=== PATIENT | female | born 1940 | race African-American/Black ===

== ENCOUNTER 2016-05-21 15:33 | Inpatient (IN) | payer MEDICARE, MEDICAID ==
[~2016-05-21] VITALS: Ht 167.6 cm; Wt 67.1 kg
[~2016-05-21 15:33] MED LIST: ALBUTEROL; AMLO10TA80; ANAS1TAB7; BUDE6HFA; CALC-696; CALC0.253; CLON0.1T; DOCUSATE; ETOMIDATE 2MG/ML 10ML VIAL IV ONE; FERR325T21; FLUT50DI; HYDR100V5; HYDR20TA; IPRA0.2S51; IPRA4AER; OMEP20CA10; SODI1TAB3; SUCCINYLCHOLINE CHLORIDE 200MG/10ML VIAL IV ONE; TC1C15; VITAMIN; [UNRECOGNIZED DRUG - CODE]
[2016-05-21] MEDS ORDERED: SODIUM CHLORIDE 0.9% 1,000 ML IV ONE ×2 (16:39→21:00)
[2016-05-21] MEDS ORDERED: KETOROLAC 30MG/ML VIAL IV STA (16:39)
[2016-05-21] MEDS ORDERED: ONDANSETRON HCL 4MG/2ML VIAL IV STA (16:39)
[2016-05-21 17:07] LABS: CHLORIDE 96 mEq/L (98-107); INDEX HEMOLYSI 1 (1-3); INDEX ICTERIC 1 (1-4); INDEX LIPEMIC 1 (1-3)
[2016-05-21 17:08] LABS: INR 1.1; PROTHROMBIN TIME 11.4 sec
[2016-05-21 17:15] LABS: ALANINE AMINOTRANSFERASE 75 IU/L (13-61); ALBUMIN 3.1 g/dL (3.4-5.0); ANION GAP 21; BASOPHILS % 0.4 % (0.0-2.0); CALCIUM 9.6 mg/dL (8.5-10.1); CARBON DIOXIDE 21 mEq/L (21-32); EOSINOPHILS % 1.9 % (0.0-5.0); HEMATOCRIT. 41.3 % (36.0-48.0); HEMOGLOBIN. 13.3 g/dL (12.0-16.0); LIPASE 110 IU/L (73-393); LYMPHOCYTES % 13.5 % (20.0-50.0); MEAN CORPUSCULAR HEMOGLOBIN 27.7 pg (28.0-32.0); MEAN CORPUSCULAR HGB CONC 32.3 g/dL (31.0-37.0); MEAN CORPUSCULAR VOLUME 85.9 fL (81.0-99.0); MEAN PLATELET VOLUME 9.4 fl (7.4-10.4); MONOCYTES % 11.7 % (2.0-8.0); NEUTROPHILS % 72.5 % (40.0-76.0); PLATELET 237 x1000/uL (130-400); RED BLOOD CELL COUNT 4.81 mill/uL (4.2-5.4); RED CELL DISTRIBUTION WIDTH 15.4 % (11.6-14.6); UREA NITROGEN BLOOD 30 mg/dL (7-21); WHITE BLOOD COUNT 9.6 x1000/uL (4.5-11.0); eGFR 12 mL/min (>60)
[2016-05-21] MEDS ORDERED: KCL 20MEQ/100ML PREMIX 100 ML IV ONE (18:00)
[2016-05-21] MEDS ORDERED: LORAZEPAM 2MG/ML CPJ IV ONE (19:45)
[2016-05-21] MEDS ORDERED: MIDAZOLAM HCL 50 MG in DEXTROSE 5% WATER 40 ML IV ONE (21:00)
[2016-05-21] MEDS ORDERED: MIDAZOLAM HCL 2 MG/2 ML VIAL IV ONE (21:00)
[2016-05-21] MEDS: METHYLPREDNISOLONE SOD SUCC 40 MG/ML VIAL IV SCH (21:26)
[2016-05-21] MEDS ORDERED: MIDAZOLAM HCL 50 MG in DEXTROSE 5% WATER 40 ML IV SCH (21:30)
[2016-05-21] MEDS ORDERED: NOREPINEPHRINE 4 MG in DEXT 5% WATER 246 ML IV ONE ×2 (22:15→23:00)
[2016-05-21] MEDS ORDERED: LEVOFLOXACIN 750MG PREMIX 150 ML IV ONE (22:30)
[2016-05-22] VITALS (91 sets, daily range): BP systolic 80–158; BP diastolic 35–107
[2016-05-22] MEDS ORDERED: SODIUM CHLORIDE 0.9% 1,000 ML IV ONE
[2016-05-22 00:27] LABS: BG BASE EXCESS -11.8 mmol/L (-2.0-2.0); BG CARBOXYHEMOGLOBIN 0.6 % (0.5-1.5); BG DEOXYHEMOGLOBIN 0.4 % (0.0-5.0); BG FRACTION INSPIRED OXYGEN 100; BG HCO3 ACT 12.5 mmol/L (22.0-26.0); BG METHEMOGLOBIN 0.3 % (0.0-1.5); BG OXYGEN SATURATION 99.6 % (92.0-98.5); BG OXYHEMOGLOBIN 98.7 % (94.0-97.0); BG PCO2 24.5 mmHg (35.0-45.0); BG PH 7.326 (7.350-7.450); BG PO2 231.4 mmHg (75.0-100.0); BG SAMPLE SITE LEFT RADIAL; BG TIDAL VOLUME(mL) 500 mL; BG TOTAL HEMOGLOBIN 11.4 g/dL (12.0-18.0); BG VENT MODE VENT - A/C; BG VENT RATE 14 set
[2016-05-22 00:54] LABS: PHOSPHORUS 8.2 mg/dL (2.5-4.9)
[2016-05-22 00:56] LABS: INDEX HEMOLYSI 3 (1-3)
[2016-05-22] MEDS ORDERED: DEXTROSE 50% WATER 50ML SYRINGE IV ONE (01:00)
[2016-05-22] MEDS ORDERED: SODIUM CHL 0.9% + KCL 20MEQ/L 1,000 ML IV SCH (03:00)
[2016-05-22] MEDS ORDERED: DEXT 5%/0.45% NACL 1000ML 1,000 ML IV SCH ×2 (03:45→04:00)
[2016-05-22] MEDS ORDERED: DEXTROSE 50% WATER 50ML SYRINGE IV PRN (03:45)
[2016-05-22] MEDS ORDERED: MIDAZOLAM HCL 100 MG in DEXT 5% WATER 80 ML IV PRN (03:45)
[2016-05-22] MEDS: METHYLPREDNISOLONE SOD SUCC 40 MG/ML VIAL IV SCH ×4 (03:56→21:14)
[2016-05-22 04:12] LABS: HEMATOCRIT. 34.1 % (36.0-48.0); HEMOGLOBIN. 10.7 g/dL (12.0-16.0); MEAN CORPUSCULAR HEMOGLOBIN 27.3 pg (28.0-32.0); MEAN CORPUSCULAR HGB CONC 31.4 g/dL (31.0-37.0); MEAN CORPUSCULAR VOLUME 86.8 fL (81.0-99.0); PLATELET 153 x1000/uL (130-400); RED BLOOD CELL COUNT 3.93 mill/uL (4.2-5.4); RED CELL DISTRIBUTION WIDTH 15.5 % (11.6-14.6); WHITE BLOOD COUNT 14.7 x1000/uL (4.5-11.0)
[2016-05-22 04:14] LABS: DIFFERENTIAL COMMENT 1
[2016-05-22 04:34] LABS: ALANINE AMINOTRANSFERASE 703 IU/L (13-61); ALBUMIN 2.3 g/dL (3.4-5.0); ANION GAP 17; CALCIUM 7.6 mg/dL (8.5-10.1); CARBON DIOXIDE 18 mEq/L (21-32); CHLORIDE 108 mEq/L (98-107); GAMMA GLUTAMYL TRANSPEPTIDASE 13 IU/L (7-32); INDEX HEMOLYSI 1 (1-3); INDEX ICTERIC 1 (1-4); INDEX LIPEMIC 1 (1-3); T4 FREE 1.62 ng/dL (0.76-1.46); UREA NITROGEN BLOOD 35 mg/dL (7-21); eGFR 12 mL/min (>60)
[2016-05-22] MEDS ORDERED: METRONIDAZOLE 500 MG PREMIX 100 ML IV SCH (05:00)
[2016-05-22] MEDS: BLOOD SUGAR DIAGNOSTIC STRIP TEST SCH ×4 (06:00→23:32)
[2016-05-22 06:07] LABS: LACTIC ACID 2.8 mmol/L (0.4-2.0)
[2016-05-22 06:51] LABS: ANISOCYTOSIS 1+; PLATELET ESTIMATE NORMAL
[2016-05-22 07:07] LABS: CREATINE KINASE 7500 IU/L (26-192)
[2016-05-22 07:54] LABS: BG BASE EXCESS -6.2 mmol/L (-2.0-2.0); BG DEOXYHEMOGLOBIN 0.8 % (0.0-5.0); BG FRACTION INSPIRED OXYGEN 90; BG METHEMOGLOBIN 0.1 % (0.0-1.5); BG OXYGEN SATURATION 99.2 % (92.0-98.5); BG OXYHEMOGLOBIN 99.1 % (94.0-97.0); BG PCO2 31.8 mmHg (35.0-45.0); BG PO2 246.2 mmHg (75.0-100.0); BG SAMPLE SITE RIGHT RADIAL; BG TIDAL VOLUME(mL) 500 mL; BG TOTAL HEMOGLOBIN 13.5 g/dL (12.0-18.0); BG VENT MODE VENT - A/C; BG VENT RATE 14 set
[2016-05-22] MEDS ORDERED: PANTOPRAZOLE SODIUM 40 MG/VIAL IV SCH (09:00)
[2016-05-22] MEDS ORDERED: DEXT 5%/0.45% NACL KCL 20MEQ/L 1,000 ML IV SCH (09:00)
[2016-05-22 10:11] LABS: MAGNESIUM 1.6 mg/dL (1.8-2.4); PHOSPHORUS 4.1 mg/dL (2.5-4.9)
[2016-05-22] MEDS: PROPOFOL 10MG/ML 100ML 100 ML IV PRN (10:27)
[2016-05-22 11:19] LABS: CLARITY URINE CLOUDY (CLEAR); COLOR URINE YELLOW (YELLOW); GLUCOSE URINE 1+ (NEGATIVE); KETONES URINE NEGATIVE (NEGATIVE); LEUKOCYTE ESTERASE URINE NEGATIVE (NEGATIVE); NITRITE URINE NEGATIVE (NEGATIVE); OCCULT BLOOD URINE 3+ (NEGATIVE); PH URINE 5.5 (4.5-8.0); PROTEIN URINE 1+ (NEGATIVE); SPECIFIC GRAVITY URINE 1.008 (1.005-1.030); UROBILINOGEN URINE 0.2 E.U./dL (0.2-1.0)
[2016-05-22 11:38] LABS: BACTERIA URINE 1+; SQUAMOUS EPITHELIAL CELL URINE FEW /lpf (RARE/1+); WBC URINE 0-2 /hpf (0-2)
[2016-05-22 13:12] LABS: HEMATOCRIT 39.4 % (36.0-48.0); HEMOGLOBIN 12.9 g/dL (12.0-16.0)
[2016-05-22] MEDS: SODIUM BICARBONATE 50 MEQ in DEXTROSE 5% WATER 1,000 ML IV SCH ×6 (14:09→21:14)
[2016-05-22] MEDS ORDERED: MAGNESIUM 2 G PREMIX 50 ML IV SCH (15:00)
[2016-05-22 15:01] LABS: HEPATITIS B SURFACE ANTIGEN NEGATIVE
[2016-05-22 15:16] LABS: HEPATITIS B CORE AB IGM NEGATIVE; HEPATITIS C VIR.AB < 0.02 INDEXVAL (0.00-0.80)
[2016-05-22 15:18] LABS: HEPATITIS A AB IGM NEGATIVE (NEGATIVE)
[2016-05-22] MEDS: BUDESONIDE 0.5MG/2ML NEB HHN SCH ×2 (17:00→20:18)
[2016-05-22 19:33] LABS: HEMATOCRIT 41.7 % (36.0-48.0); HEMOGLOBIN 13.6 g/dL (12.0-16.0)
[2016-05-22] MEDS: METRONIDAZOLE 500MG TABLET PO SCH (21:14)
[2016-05-22] MEDS: PANTOPRAZOLE SODIUM 40 MG/VIAL IV SCH (21:14)
[2016-05-23] VITALS (66 sets, daily range): BP systolic 107–171; BP diastolic 31–114
[2016-05-23] MEDS: PROPOFOL 10MG/ML 100ML 100 ML IV PRN (01:14)
[2016-05-23 01:16] LABS: HEMATOCRIT 37.9 % (36.0-48.0); HEMOGLOBIN 12.1 g/dL (12.0-16.0)
[2016-05-23] MEDS: METHYLPREDNISOLONE SOD SUCC 40 MG/ML VIAL IV SCH ×4 (03:42→21:31)
[2016-05-23] MEDS: BLOOD SUGAR DIAGNOSTIC STRIP TEST SCH ×3 (06:00→18:00)
[2016-05-23] MEDS: SODIUM BICARBONATE 50 MEQ in DEXTROSE 5% WATER 1,000 ML IV SCH ×3 (06:16)
[2016-05-23 06:50] LABS: HEMATOCRIT. 39.2 % (36.0-48.0); HEMOGLOBIN. 12.8 g/dL (12.0-16.0); MEAN CORPUSCULAR HEMOGLOBIN 27.6 pg (28.0-32.0); MEAN CORPUSCULAR HGB CONC 32.7 g/dL (31.0-37.0); MEAN CORPUSCULAR VOLUME 84.5 fL (81.0-99.0); MEAN PLATELET VOLUME 9.8 fl (7.4-10.4); PLATELET 146 x1000/uL (130-400); RED BLOOD CELL COUNT 4.64 mill/uL (4.2-5.4); RED CELL DISTRIBUTION WIDTH 16.1 % (11.6-14.6); WHITE BLOOD COUNT 8.8 x1000/uL (4.5-11.0)
[2016-05-23 06:55] LABS: DIFFERENTIAL COMMENT 1
[2016-05-23 07:05] LABS: ALBUMIN 2.2 g/dL (3.4-5.0); BILIRUBIN DIRECT 0.2 mg/dL (0.0-0.2); CALCIUM 7.6 mg/dL (8.5-10.1); MAGNESIUM 2.4 mg/dL (1.8-2.4); PHOSPHORUS 5.2 mg/dL (2.5-4.9)
[2016-05-23] MEDS: BUDESONIDE 0.5MG/2ML NEB HHN SCH ×2 (08:25→21:02)
[2016-05-23 08:40] LABS: BG BASE EXCESS -2.7 mmol/L (-2.0-2.0); BG CARBOXYHEMOGLOBIN 0.1 % (0.5-1.5); BG DEOXYHEMOGLOBIN 1.9 % (0.0-5.0); BG FRACTION INSPIRED OXYGEN 40; BG HCO3 ACT 19.7 mmol/L (22.0-26.0); BG METHEMOGLOBIN 0.4 % (0.0-1.5); BG OXYGEN SATURATION 98.1 % (92.0-98.5); BG OXYHEMOGLOBIN 97.6 % (94.0-97.0); BG PCO2 27.5 mmHg (35.0-45.0); BG PH 7.472 (7.350-7.450); BG PO2 117.1 mmHg (75.0-100.0); BG SAMPLE SITE RIGHT RADIAL; BG TIDAL VOLUME(mL) 500 mL; BG TOTAL HEMOGLOBIN 12.8 g/dL (12.0-18.0); BG VENT MODE VENT - A/C; BG VENT RATE 14 set
[2016-05-23] MEDS: PANTOPRAZOLE SODIUM 40 MG/VIAL IV SCH ×2 (09:05→21:27)
[2016-05-23] MEDS: METRONIDAZOLE 500MG TABLET PO SCH ×2 (09:06→21:27)
[2016-05-23 10:09] LABS: ANISOCYTOSIS 1+; PLATELET ESTIMATE NORMAL
[2016-05-23 10:10] LABS: GIANT PLATELETS 1+
[2016-05-23] MEDS: MORPHINE SULFATE 2 MG/ML CPJ (NOT FOR IM USE) IV PRN ×2 (11:54→21:55)
[2016-05-23 12:27] LABS: HEMATOCRIT 35.1 % (36.0-48.0); HEMOGLOBIN 11.7 g/dL (12.0-16.0)
[2016-05-23 13:20] LABS: INDEX HEMOLYSI 1 (1-3)
[2016-05-23 13:51] LABS: CREATINE KINASE 7878 IU/L (26-192)
[2016-05-23 14:05] LABS: BG BASE EXCESS -2.3 mmol/L (-2.0-2.0); BG CARBOXYHEMOGLOBIN 0.2 % (0.5-1.5); BG DEOXYHEMOGLOBIN 1.5 % (0.0-5.0); BG FRACTION INSPIRED OXYGEN 40; BG HCO3 ACT 19.8 mmol/L (22.0-26.0); BG METHEMOGLOBIN 0.2 % (0.0-1.5); BG OXYGEN SATURATION 98.5 % (92.0-98.5); BG OXYHEMOGLOBIN 98.1 % (94.0-97.0); BG PCO2 26.5 mmHg (35.0-45.0); BG PH 7.491 (7.350-7.450); BG PO2 138.4 mmHg (75.0-100.0); BG PRESSURE SUPPORT 6; BG SAMPLE SITE RIGHT RADIAL; BG TOTAL HEMOGLOBIN 12.2 g/dL (12.0-18.0); BG VENT MODE VENT - CPAP
[2016-05-23] MEDS: DEXT 5%/0.9% NACL 1,000 ML IV SCH ×2 (15:15→23:21)
[2016-05-23] MEDS ORDERED: ENALAPRIL 2.5MG/2ML VIAL 2ML IV PRN (18:30)
[2016-05-23] MEDS ORDERED: ENALAPRIL 1.25MG/ML VIAL 1ML IV PRN (19:30)
[2016-05-23 19:44] LABS: HEMATOCRIT 33.7 % (36.0-48.0); HEMOGLOBIN 11.4 g/dL (12.0-16.0)
[2016-05-24] VITALS (22 sets, daily range): BP systolic 124–174; BP diastolic 63–139
[2016-05-24] MEDS ORDERED: LEVOFLOXACIN 250MG PREMIX 50 ML IV SCH
[2016-05-24] MEDS: LEVOFLOXACIN 250MG PREMIX 50 ML IV SCH (00:08)
[2016-05-24] MEDS: BLOOD SUGAR DIAGNOSTIC STRIP TEST SCH ×4 (00:08→17:09)
[2016-05-24] MEDS: METHYLPREDNISOLONE SOD SUCC 40 MG/ML VIAL IV SCH ×3 (02:36→16:20)
[2016-05-24 06:31] LABS: HEMATOCRIT. 32.1 % (36.0-48.0); HEMOGLOBIN. 10.6 g/dL (12.0-16.0); MEAN CORPUSCULAR HEMOGLOBIN 27.4 pg (28.0-32.0); MEAN CORPUSCULAR VOLUME 82.8 fL (81.0-99.0); MEAN PLATELET VOLUME 9.8 fl (7.4-10.4); PLATELET 124 x1000/uL (130-400); RED BLOOD CELL COUNT 3.87 mill/uL (4.2-5.4); RED CELL DISTRIBUTION WIDTH 15.8 % (11.6-14.6); WHITE BLOOD COUNT 6.4 x1000/uL (4.5-11.0)
[2016-05-24] MEDS: DEXT 5%/0.9% NACL 1,000 ML IV SCH (06:36)
[2016-05-24 07:17] LABS: DIFFERENTIAL COMMENT 1
[2016-05-24] MEDS: BUDESONIDE 0.5MG/2ML NEB HHN SCH ×2 (07:42→19:57)
[2016-05-24 08:09] LABS: CALCIUM 7.1 mg/dL (8.5-10.1); MAGNESIUM 2.1 mg/dL (1.8-2.4); PHOSPHORUS 5.7 mg/dL (2.5-4.9)
[2016-05-24 08:25] LABS: PLATELET ESTIMATE SLIGHTLY DECREASED
[2016-05-24 08:27] LABS: ANISOCYTOSIS 1+
[2016-05-24] MEDS: METRONIDAZOLE 500MG TABLET PO SCH ×2 (08:49→20:23)
[2016-05-24] MEDS: PANTOPRAZOLE SODIUM 40 MG/VIAL IV SCH ×2 (08:49→20:23)
[2016-05-24] MEDS: HYDRALAZINE 20MG/ML VIAL IV PRN ×2 (11:58→17:11)
[2016-05-24] MEDS: IPRATROPIUM/ALBUTEROL 0.5-3(2.5)MG/3ML NEB HHN SCH ×3 (12:27→19:57)
[2016-05-24] MEDS ORDERED: CLONIDINE HCL 0.1MG/24HR PATCH TD SCH (15:12)
[2016-05-24] MEDS ORDERED: DEXT 5%/0.45% NACL 1000ML 1,000 ML IV SCH (16:00)
[2016-05-24] MEDS: MORPHINE SULFATE 2 MG/ML CPJ (NOT FOR IM USE) IV PRN (16:17)
[2016-05-24] MEDS: DEXT 5%/0.45% NACL 1000ML 1,000 ML IV SCH (16:23)
[2016-05-25] VITALS (34 sets, daily range): BP systolic 127–198; BP diastolic 56–110
[2016-05-25] MEDS: IPRATROPIUM/ALBUTEROL 0.5-3(2.5)MG/3ML NEB HHN SCH ×7 (00:52→23:51)
[2016-05-25] MEDS: DEXT 5%/0.45% NACL 1000ML 1,000 ML IV SCH ×3 (02:35→23:34)
[2016-05-25] MEDS: BLOOD SUGAR DIAGNOSTIC STRIP TEST SCH ×5 (05:40→23:55)
[2016-05-25 06:18] LABS: HEMATOCRIT. 31.3 % (36.0-48.0); HEMOGLOBIN. 10.3 g/dL (12.0-16.0); MEAN CORPUSCULAR HEMOGLOBIN 27.3 pg (28.0-32.0); MEAN CORPUSCULAR VOLUME 82.8 fL (81.0-99.0); MEAN PLATELET VOLUME 9.8 fl (7.4-10.4); PLATELET 131 x1000/uL (130-400); RED BLOOD CELL COUNT 3.78 mill/uL (4.2-5.4); RED CELL DISTRIBUTION WIDTH 15.8 % (11.6-14.6); WHITE BLOOD COUNT 8.6 x1000/uL (4.5-11.0)
[2016-05-25 06:19] LABS: DIFFERENTIAL COMMENT 1
[2016-05-25 07:38] LABS: PLATELET ESTIMATE NORMAL
[2016-05-25 07:40] LABS: ANISOCYTOSIS 1+
[2016-05-25] MEDS: METRONIDAZOLE 500MG TABLET PO SCH ×2 (09:14→20:35)
[2016-05-25] MEDS: FAMOTIDINE 20MG/2ML VIAL IV SCH (09:14)
[2016-05-25 09:16] LABS: BILIRUBIN DIRECT 0.2 mg/dL (0.0-0.2); CALCIUM 7.3 mg/dL (8.5-10.1); MAGNESIUM 1.9 mg/dL (1.8-2.4); PHOSPHORUS 3.8 mg/dL (2.5-4.9)
[2016-05-25] MEDS: BUDESONIDE 0.5MG/2ML NEB HHN SCH (09:17)
[2016-05-25] MEDS: METHYLPREDNISOLONE SOD SUCC 40 MG/ML VIAL IV SCH ×4 (09:17→23:35)
[2016-05-25 09:23] LABS: T3 FREE 0.86 pg/ml (2.18-3.98)
[2016-05-25 11:07] LABS: BG BASE EXCESS -3.9 mmol/L (-2.0-2.0); BG CARBOXYHEMOGLOBIN 0.1 % (0.5-1.5); BG DEOXYHEMOGLOBIN 2.5 % (0.0-5.0); BG FRACTION INSPIRED OXYGEN 28; BG HCO3 ACT 19.4 mmol/L (22.0-26.0); BG METHEMOGLOBIN 0.3 % (0.0-1.5); BG OXYGEN SATURATION 97.5 % (92.0-98.5); BG OXYHEMOGLOBIN 97.1 % (94.0-97.0); BG PCO2 29.6 mmHg (35.0-45.0); BG PH 7.435 (7.350-7.450); BG PO2 107.4 mmHg (75.0-100.0); BG SAMPLE SITE RIGHT BRACHIAL; BG TOTAL HEMOGLOBIN 10.9 g/dL (12.0-18.0); BG VENT MODE NASAL CANNULA
[2016-05-25] MEDS: HYDRALAZINE 20MG/ML VIAL IV PRN ×2 (11:15→16:22)
[2016-05-25] MEDS ORDERED: POTASSIUM CHLORIDE INJ 40 MEQ in DEXT 5% WATER 250 ML IV NR (11:30)
[2016-05-25 12:46] LABS: CREATININE URINE (RAW) 63.5 mg/dl
[2016-05-25] MEDS: MORPHINE SULFATE 2 MG/ML CPJ (NOT FOR IM USE) IV PRN ×2 (14:05)
[2016-05-25] MEDS ORDERED: CLONIDINE HCL 0.3MG/24HR PATCH TD NR (15:30)
[2016-05-25] MEDS ORDERED: ENALAPRIL 2.5MG/2ML VIAL 2ML IV SCH (18:00)
[2016-05-25] MEDS: LEVOFLOXACIN 250MG PREMIX 50 ML IV SCH (23:35)
[2016-05-26] VITALS (17 sets, daily range): BP systolic 135–166; BP diastolic 81–109
[2016-05-26] MEDS: MORPHINE SULFATE 2 MG/ML CPJ (NOT FOR IM USE) IV PRN ×3 (00:18→20:06)
[2016-05-26] MEDS: IPRATROPIUM/ALBUTEROL 0.5-3(2.5)MG/3ML NEB HHN SCH ×6 (04:01→23:47)
[2016-05-26] MEDS: BLOOD SUGAR DIAGNOSTIC STRIP TEST SCH ×3 (06:00→17:59)
[2016-05-26 06:59] LABS: HEMATOCRIT. 28.7 % (36.0-48.0); HEMOGLOBIN. 9.2 g/dL (12.0-16.0); MEAN CORPUSCULAR HEMOGLOBIN 26.7 pg (28.0-32.0); MEAN CORPUSCULAR VOLUME 83.3 fL (81.0-99.0); PLATELET 117 x1000/uL (130-400); RED BLOOD CELL COUNT 3.45 mill/uL (4.2-5.4); RED CELL DISTRIBUTION WIDTH 15.9 % (11.6-14.6); WHITE BLOOD COUNT 16.5 x1000/uL (4.5-11.0)
[2016-05-26 07:06] LABS: DIFFERENTIAL COMMENT 1
[2016-05-26 08:06] LABS: CALCIUM 8.2 mg/dL (8.5-10.1); MAGNESIUM 1.8 mg/dL (1.8-2.4); PHOSPHORUS 2.8 mg/dL (2.5-4.9)
[2016-05-26] MEDS: METHYLPREDNISOLONE SOD SUCC 40 MG/ML VIAL IV SCH ×2 (08:06→15:10)
[2016-05-26] MEDS: METRONIDAZOLE 500MG TABLET PO SCH (08:06)
[2016-05-26] MEDS: FAMOTIDINE 20MG/2ML VIAL IV SCH (08:07)
[2016-05-26] MEDS: DEXT 5%/0.45% NACL 1000ML 1,000 ML IV SCH (08:09)
[2016-05-26] MEDS: HYDRALAZINE 20MG/ML VIAL IV PRN ×2 (08:15→12:41)
[2016-05-26 08:51] LABS: PLATELET ESTIMATE DECREASED
[2016-05-26 08:53] LABS: LACTIC ACID 2.1 mmol/L (0.4-2.0)
[2016-05-26] MEDS ORDERED: DEXT 5%/0.45% NACL KCL 30MEQ/L 1,000 ML IV SCH (09:45)
[2016-05-26] MEDS: ENALAPRIL 2.5MG/2ML VIAL 2ML IV PRN (09:57)
[2016-05-26] MEDS ORDERED: POTASSIUM CHLORIDE INJ 40 MEQ in DEXT 5% WATER 250 ML IV NR (10:30)
[2016-05-26] MEDS: METRONIDAZOLE 500 MG PREMIX 100 ML IV SCH ×2 (13:15→20:08)
[2016-05-26] MEDS: DEXT 5%/0.45% NACL KCL 30MEQ/L 1,000 ML IV SCH (15:09)
[2016-05-26] MEDS: HYDRALAZINE 20MG/ML VIAL IV SCH (20:07)
[2016-05-26] MEDS: HYDROCORTISONE SOD SUCCINATE 100 MG/2 ML VIAL IV SCH (21:17)
[2016-05-26] MEDS: CLONIDINE HCL 0.3MG/24HR PATCH TD SCH (21:18)
[2016-05-27] VITALS (12 sets, daily range): BP systolic 128–169; BP diastolic 78–132
[2016-05-27] MEDS: HYDRALAZINE 20MG/ML VIAL IV SCH ×6 (00:05→21:00)
[2016-05-27] MEDS: BLOOD SUGAR DIAGNOSTIC STRIP TEST SCH ×4 (00:06→18:12)
[2016-05-27] MEDS: MORPHINE SULFATE 2 MG/ML CPJ (NOT FOR IM USE) IV PRN ×4 (00:06→18:07)
[2016-05-27] MEDS: DEXT 5%/0.45% NACL KCL 30MEQ/L 1,000 ML IV SCH ×2 (03:11→07:40)
[2016-05-27] MEDS: IPRATROPIUM/ALBUTEROL 0.5-3(2.5)MG/3ML NEB HHN SCH ×5 (04:39→20:12)
[2016-05-27] MEDS: METRONIDAZOLE 500 MG PREMIX 100 ML IV SCH ×3 (05:33→21:43)
[2016-05-27] MEDS: HYDROCORTISONE SOD SUCCINATE 100 MG/2 ML VIAL IV SCH ×3 (06:35→21:43)
[2016-05-27 06:47] LABS: HEMATOCRIT. 30.2 % (36.0-48.0); HEMOGLOBIN. 9.9 g/dL (12.0-16.0); MEAN CORPUSCULAR HEMOGLOBIN 26.7 pg (28.0-32.0); MEAN CORPUSCULAR HGB CONC 32.6 g/dL (31.0-37.0); MEAN CORPUSCULAR VOLUME 81.8 fL (81.0-99.0); PLATELET 100 x1000/uL (130-400); RED BLOOD CELL COUNT 3.69 mill/uL (4.2-5.4); RED CELL DISTRIBUTION WIDTH 16.4 % (11.6-14.6); WHITE BLOOD COUNT 22.7 x1000/uL (4.5-11.0)
[2016-05-27 07:02] LABS: DIFFERENTIAL COMMENT 1
[2016-05-27 07:13] LABS: ALANINE AMINOTRANSFERASE 226 IU/L (13-61); ALBUMIN 2.2 g/dL (3.4-5.0); ANION GAP 16; CALCIUM 8.1 mg/dL (8.5-10.1); CARBON DIOXIDE 19 mEq/L (21-32); CHLORIDE 115 mEq/L (98-107); CREATINE KINASE 577 IU/L (26-192); INDEX HEMOLYSI 1 (1-3); INDEX ICTERIC 1 (1-4); INDEX LIPEMIC 1 (1-3); MAGNESIUM 1.8 mg/dL (1.8-2.4); PHOSPHORUS 2.5 mg/dL (2.5-4.9); UREA NITROGEN BLOOD 56 mg/dL (7-21); eGFR 20 mL/min (>60)
[2016-05-27] MEDS: FAMOTIDINE 20MG/2ML VIAL IV SCH (07:40)
[2016-05-27] MEDS: ONDANSETRON HCL 4MG/2ML VIAL IV PRN (07:41)
[2016-05-27] MEDS ORDERED: DIATR MEGLU/DIATRIZOATE SOLN 120ML ONE (12:26)
[2016-05-27 12:46] LABS: ANISOCYTOSIS 1+; PLATELET ESTIMATE DECREASED
[2016-05-27] MEDS: NITROGLYCERIN OINT 1GM/INCH UDPKT TD SCH ×2 (14:00→21:43)
[2016-05-27] MEDS: DEXT 5% WATER + KCL 20MEQ/L 1,000 ML IV SCH (20:00)
[2016-05-28] VITALS (14 sets, daily range): BP systolic 101–146; BP diastolic 62–102
[2016-05-28] MEDS: HYDRALAZINE 20MG/ML VIAL IV SCH ×7 (00:30→23:52)
[2016-05-28] MEDS: LEVOFLOXACIN 250MG PREMIX 50 ML IV SCH (00:30)
[2016-05-28] MEDS: BLOOD SUGAR DIAGNOSTIC STRIP TEST SCH ×5 (00:35→23:40)
[2016-05-28] MEDS: IPRATROPIUM/ALBUTEROL 0.5-3(2.5)MG/3ML NEB HHN SCH ×6 (03:36→20:46)
[2016-05-28] MEDS: METRONIDAZOLE 500 MG PREMIX 100 ML IV SCH ×3 (04:32→18:15)
[2016-05-28] MEDS: DEXT 5% WATER + KCL 20MEQ/L 1,000 ML IV SCH (04:33)
[2016-05-28] MEDS: HYDROCORTISONE SOD SUCCINATE 100 MG/2 ML VIAL IV SCH ×3 (06:08→21:25)
[2016-05-28] MEDS: NITROGLYCERIN OINT 1GM/INCH UDPKT TD SCH ×3 (06:08→21:25)
[2016-05-28 06:49] LABS: HEMATOCRIT. 30.3 % (36.0-48.0); HEMOGLOBIN. 9.8 g/dL (12.0-16.0); MEAN CORPUSCULAR HEMOGLOBIN 26.7 pg (28.0-32.0); MEAN CORPUSCULAR HGB CONC 32.5 g/dL (31.0-37.0); MEAN CORPUSCULAR VOLUME 82.1 fL (81.0-99.0); PLATELET 62 x1000/uL (130-400); RED BLOOD CELL COUNT 3.68 mill/uL (4.2-5.4); RED CELL DISTRIBUTION WIDTH 17.2 % (11.6-14.6); WHITE BLOOD COUNT 20.1 x1000/uL (4.5-11.0)
[2016-05-28 07:32] LABS: ALANINE AMINOTRANSFERASE 192 IU/L (13-61); ALBUMIN 2.2 g/dL (3.4-5.0); ANION GAP 16; CALCIUM 8.4 mg/dL (8.5-10.1); CARBON DIOXIDE 20 mEq/L (21-32); CHLORIDE 123 mEq/L (98-107); CREATINE KINASE 414 IU/L (26-192); CREATINE KINASE MB FRACTION 6.8 ng/mL (0.5-3.6); INDEX HEMOLYSI 3 (1-3); INDEX ICTERIC 1 (1-4); INDEX LIPEMIC 1 (1-3); MAGNESIUM 1.9 mg/dL (1.8-2.4); TROPONIN I 0.17 ng/mL (0.00-0.04); UREA NITROGEN BLOOD 61 mg/dL (7-21); eGFR 22 mL/min (>60)
[2016-05-28 07:56] LABS: DIFFERENTIAL COMMENT 1
[2016-05-28] MEDS: FAMOTIDINE 20MG/2ML VIAL IV SCH (08:56)
[2016-05-28] MEDS ORDERED: ALBUMIN HUMAN 12.5GM/50ML (25%) IV ONE (09:31)
[2016-05-28] MEDS ORDERED: DEXTROSE 5% WATER 1,000 ML IV SCH (10:30)
[2016-05-28] MEDS ORDERED: METRONIDAZOLE 500 MG PREMIX 100 ML IV ONE (12:06)
[2016-05-28] MEDS ORDERED: MORPHINE SULFATE 5 MG/ML VIAL IV PRN (12:15)
[2016-05-28] MEDS ORDERED: ONDANSETRON HCL 4MG/2ML VIAL IV PRN (12:15)
[2016-05-28] MEDS ORDERED: FENTANYL CITRATE/PF 50MCG/ML 2ML VIAL ONE (12:17)
[2016-05-28] MEDS ORDERED: PROPOFOL 200MG/20ML VIAL IV ONE (12:39)
[2016-05-28] MEDS ORDERED: ROCURONIUM BROMIDE 10MG/ML VIAL 5ML IV ONE (12:39)
[2016-05-28] MEDS ORDERED: LIDOCAINE HCL 1% 20ML VIAL (Pyxis) INJ ONE (12:39)
[2016-05-28] MEDS ORDERED: PHENYLEPHRINE HCL 10 MG/ML 1ML (IV VIAL) IV ONE (12:39)
[2016-05-28 12:40] LABS: ACANTHOCYTES 1+; ANISOCYTOSIS 1+; PLATELET ESTIMATE MARKEDLY DECREASED
[2016-05-28] MEDS ORDERED: GLYCOPYRROLATE 0.2 MG/ML 2ML VIAL ONE (12:48)
[2016-05-28] MEDS ORDERED: NEOSTIGMINE METHYLSULFATE 1MG/ML 10 ML VIAL ONE (12:48)
[2016-05-28] MEDS ORDERED: HYDROCORTISONE SOD SUCCINATE 100 MG/2 ML VIAL ONE (12:48)
[2016-05-28] MEDS ORDERED: HYDROMORPHONE HCL/PF 2MG/ML CPJ IV PRN (13:45)
[2016-05-28] MEDS ORDERED: ONDANSETRON HCL 4MG/2ML VIAL IV NR (13:45)
[2016-05-28] MEDS ORDERED: MEPERIDINE HCL/PF 25MG/ML CPJ IV PRN (13:45)
[2016-05-28] MEDS ORDERED: FENTANYL CITRATE/PF 50MCG/ML 2ML VIAL IV PRN (13:45)
[2016-05-28] MEDS: DEXT 5%/0.45% NACL KCL 20MEQ/L 1,000 ML IV SCH (18:15)
[2016-05-28] MEDS: MORPHINE SULFATE 2 MG/ML CPJ (NOT FOR IM USE) IV PRN ×2 (18:37→23:54)
[2016-05-28] MEDS ORDERED: FAMOTIDINE 20MG/2ML VIAL IV SCH (21:00)
[2016-05-28 23:14] LABS: PARTIAL THROMBOPLASTIN TIME 24.9 sec (24.0-34.0)
[2016-05-29] VITALS (53 sets, daily range): BP systolic 117–171; BP diastolic 69–106
[2016-05-29] MEDS: IPRATROPIUM/ALBUTEROL 0.5-3(2.5)MG/3ML NEB HHN SCH ×5 (00:20→20:32)
[2016-05-29] MEDS ORDERED: MORPHINE SULFATE 4 MG/ML CPJ (NOT FOR IM USE) IV PRN (04:16)
[2016-05-29] MEDS: METRONIDAZOLE 500 MG PREMIX 100 ML IV SCH ×3 (04:18→20:18)
[2016-05-29] MEDS: HYDRALAZINE 20MG/ML VIAL IV SCH ×5 (04:18→20:18)
[2016-05-29] MEDS: NITROGLYCERIN OINT 1GM/INCH UDPKT TD SCH ×3 (05:32→22:49)
[2016-05-29] MEDS: DEXT 5%/0.45% NACL KCL 20MEQ/L 1,000 ML IV SCH (05:33)
[2016-05-29] MEDS: HYDROCORTISONE SOD SUCCINATE 100 MG/2 ML VIAL IV SCH ×3 (05:33→22:48)
[2016-05-29 05:41] LABS: ALANINE AMINOTRANSFERASE 137 IU/L (13-61); ALBUMIN 2.3 g/dL (3.4-5.0); CARBON DIOXIDE 20 mEq/L (21-32); CHLORIDE 125 mEq/L (98-107); CREATINE KINASE MB FRACTION 5.7 ng/mL (0.5-3.6); INDEX HEMOLYSI 1 (1-3); INDEX ICTERIC 1 (1-4); INDEX LIPEMIC 1 (1-3); PREALBUMIN 16.2 mg/dL (20.0-40.0); UREA NITROGEN BLOOD 55 mg/dL (7-21); eGFR 25 mL/min (>60)
[2016-05-29 05:53] LABS: ANION GAP 17; CREATINE KINASE 463 IU/L (26-192)
[2016-05-29] MEDS: BLOOD SUGAR DIAGNOSTIC STRIP TEST SCH ×3 (06:00→18:00)
[2016-05-29] MEDS: HYDROMORPHONE HCL/PF 2MG/ML CPJ IV PRN ×5 (08:12→22:51)
[2016-05-29 08:13] LABS: HEMATOCRIT. 22.5 % (36.0-48.0); HEMOGLOBIN. 7.4 g/dL (12.0-16.0); MEAN CORPUSCULAR HEMOGLOBIN 26.7 pg (28.0-32.0); MEAN CORPUSCULAR VOLUME 80.8 fL (81.0-99.0); MEAN PLATELET VOLUME 8.6 fl (7.4-10.4); RED BLOOD CELL COUNT 2.79 mill/uL (4.2-5.4); RED CELL DISTRIBUTION WIDTH 17.4 % (11.6-14.6); WHITE BLOOD COUNT 15.4 x1000/uL (4.5-11.0)
[2016-05-29] MEDS: FAMOTIDINE 20MG/2ML VIAL IV SCH (08:16)
[2016-05-29] MEDS: DEXTROSE 5% WATER 1,000 ML IV SCH ×2 (08:23→15:55)
[2016-05-29 08:33] LABS: DIFFERENTIAL COMMENT 1; PLATELET 44 x1000/uL (130-400)
[2016-05-29 10:13] LABS: ANISOCYTOSIS 1+; GIANT PLATELETS FEW; PLATELET ESTIMATE MARKEDLY DECREASED
[2016-05-29 10:47] LABS: BG BASE EXCESS -2.4 mmol/L (-2.0-2.0); BG CARBOXYHEMOGLOBIN 0.5 % (0.5-1.5); BG DEOXYHEMOGLOBIN 3.4 % (0.0-5.0); BG FRACTION INSPIRED OXYGEN 21; BG HCO3 ACT 21.5 mmol/L (22.0-26.0); BG METHEMOGLOBIN 0.4 % (0.0-1.5); BG OXYGEN SATURATION 96.6 % (92.0-98.5); BG OXYHEMOGLOBIN 95.7 % (94.0-97.0); BG PCO2 32.8 mmHg (35.0-45.0); BG PH 7.434 (7.350-7.450); BG PO2 98.7 mmHg (75.0-100.0); BG SAMPLE SITE RIGHT RADIAL; BG TOTAL HEMOGLOBIN 7.4 g/dL (12.0-18.0); BG VENT MODE ROOM AIR
[2016-05-29 16:01] LABS: CALCIUM 7.6 mg/dL (8.5-10.1)
[2016-05-30] VITALS (61 sets, daily range): BP systolic 111–179; BP diastolic 56–105
[2016-05-30] MEDS: IPRATROPIUM/ALBUTEROL 0.5-3(2.5)MG/3ML NEB HHN SCH ×6 (00:19→20:15)
[2016-05-30] MEDS: LEVOFLOXACIN 250MG PREMIX 50 ML IV SCH (00:49)
[2016-05-30] MEDS: HYDRALAZINE 20MG/ML VIAL IV SCH ×8 (00:49→23:32)
[2016-05-30] MEDS: BLOOD SUGAR DIAGNOSTIC STRIP TEST SCH ×4 (01:07→18:09)
[2016-05-30] MEDS: HYDROMORPHONE HCL/PF 2MG/ML CPJ IV PRN ×3 (02:32→15:45)
[2016-05-30] MEDS: DEXTROSE 5% WATER 1,000 ML IV SCH ×3 (03:42→17:57)
[2016-05-30] MEDS: METRONIDAZOLE 500 MG PREMIX 100 ML IV SCH ×3 (04:41→20:17)
[2016-05-30 05:09] LABS: HEMATOCRIT. 33.5 % (36.0-48.0); HEMOGLOBIN. 10.9 g/dL (12.0-16.0); MEAN CORPUSCULAR HEMOGLOBIN 27.3 pg (28.0-32.0); MEAN CORPUSCULAR HGB CONC 32.6 g/dL (31.0-37.0); MEAN CORPUSCULAR VOLUME 83.8 fL (81.0-99.0); RED CELL DISTRIBUTION WIDTH 16.4 % (11.6-14.6); WHITE BLOOD COUNT 23.1 x1000/uL (4.5-11.0)
[2016-05-30 05:22] LABS: DIFFERENTIAL COMMENT 1
[2016-05-30 05:32] LABS: CALCIUM 8.1 mg/dL (8.5-10.1)
[2016-05-30] MEDS ORDERED: HYDROCORTISONE SOD SUCCINATE 100 MG/2 ML VIAL IV SCH (06:00)
[2016-05-30] MEDS: NITROGLYCERIN OINT 1GM/INCH UDPKT TD SCH ×3 (06:50→21:49)
[2016-05-30 07:09] LABS: ANISOCYTOSIS 1+; NUCLEATED RED BLOOD CELLS 1 /100 WBC
[2016-05-30 07:12] LABS: ACANTHOCYTES 1+; PLATELET ESTIMATE MARKEDLY DECREASED
[2016-05-30 07:20] LABS: MEAN PLATELET VOLUME 9.8 fl (7.4-10.4); PLATELET 50 x1000/uL (130-400)
[2016-05-30] MEDS: FAMOTIDINE 20MG/2ML VIAL IV SCH (08:36)
[2016-05-30] MEDS: MORPHINE SULFATE 2 MG/ML CPJ (NOT FOR IM USE) IV PRN ×2 (14:01→21:50)
[2016-05-30] MEDS: ENALAPRIL 2.5MG/2ML VIAL 2ML IV PRN (14:54)
[2016-05-30] MEDS ORDERED: NITROGLYCERIN OINT 1GM/INCH UDPKT TD NR (16:13)
[2016-05-30] MEDS ORDERED: HYDRALAZINE 20MG/ML VIAL IV NR (16:15)
[2016-05-30] MEDS: HYDROCORTISONE SOD SUCCINATE 100 MG/2 ML VIAL IV SCH (18:11)
[2016-05-31] VITALS (62 sets, daily range): BP systolic 93–193; BP diastolic 55–115
[2016-05-31] MEDS: IPRATROPIUM/ALBUTEROL 0.5-3(2.5)MG/3ML NEB HHN SCH ×5 (00:15→20:51)
[2016-05-31] MEDS: BLOOD SUGAR DIAGNOSTIC STRIP TEST SCH ×4 (00:24→17:31)
[2016-05-31] MEDS: DEXTROSE 5% WATER 1,000 ML IV SCH ×4 (00:28→20:29)
[2016-05-31] MEDS: HYDROMORPHONE HCL/PF 2MG/ML CPJ IV PRN ×4 (01:36→21:18)
[2016-05-31] MEDS: HYDRALAZINE 20MG/ML VIAL IV SCH ×5 (03:39→20:00)
[2016-05-31 05:29] LABS: HEMATOCRIT. 31.6 % (36.0-48.0); HEMOGLOBIN. 10.5 g/dL (12.0-16.0); MEAN CORPUSCULAR HEMOGLOBIN 27.3 pg (28.0-32.0); MEAN CORPUSCULAR HGB CONC 33.2 g/dL (31.0-37.0); MEAN CORPUSCULAR VOLUME 82.3 fL (81.0-99.0); PLATELET 52 x1000/uL (130-400); RED BLOOD CELL COUNT 3.84 mill/uL (4.2-5.4); RED CELL DISTRIBUTION WIDTH 16.7 % (11.6-14.6); WHITE BLOOD COUNT 20.9 x1000/uL (4.5-11.0)
[2016-05-31 05:42] LABS: DIFFERENTIAL COMMENT 1
[2016-05-31 05:46] LABS: ALANINE AMINOTRANSFERASE 113 IU/L (13-61); ALBUMIN 2.2 g/dL (3.4-5.0); ANION GAP 14; CALCIUM 7.8 mg/dL (8.5-10.1); CARBON DIOXIDE 20 mEq/L (21-32); CHLORIDE 116 mEq/L (98-107); INDEX HEMOLYSI 1 (1-3); INDEX ICTERIC 1 (1-4); INDEX LIPEMIC 1 (1-3); UREA NITROGEN BLOOD 39 mg/dL (7-21); eGFR 33 mL/min (>60)
[2016-05-31] MEDS: HYDROCORTISONE SOD SUCCINATE 100 MG/2 ML VIAL IV SCH ×2 (05:50→17:31)
[2016-05-31] MEDS: NITROGLYCERIN OINT 1GM/INCH UDPKT TD SCH ×3 (05:50→22:41)
[2016-05-31] MEDS: METRONIDAZOLE 500 MG PREMIX 100 ML IV SCH ×3 (05:50→22:25)
[2016-05-31] MEDS: MORPHINE SULFATE 2 MG/ML CPJ (NOT FOR IM USE) IV PRN ×2 (06:04→14:17)
[2016-05-31] MEDS: FAMOTIDINE 20MG/2ML VIAL IV SCH (08:38)
[2016-05-31 09:06] LABS: ACANTHOCYTES 1+; ANISOCYTOSIS 1+; PLATELET ESTIMATE DECREASED
[2016-05-31] MEDS ORDERED: DIPHENHYDRAMINE 50MG/ML VIAL IM PRN (15:00)
[2016-05-31] MEDS: DIPHENHYDRAMINE 50MG/ML VIAL IV PRN (21:17)
[2016-06-01] VITALS (25 sets, daily range): BP systolic 101–161; BP diastolic 33–105
[2016-06-01] MEDS: HYDRALAZINE 20MG/ML VIAL IV SCH ×7 (00:18→23:19)
[2016-06-01] MEDS: IPRATROPIUM/ALBUTEROL 0.5-3(2.5)MG/3ML NEB HHN SCH ×6 (00:18→20:00)
[2016-06-01] MEDS: BLOOD SUGAR DIAGNOSTIC STRIP TEST SCH ×5 (00:22→23:10)
[2016-06-01] MEDS: LEVOFLOXACIN 250MG PREMIX 50 ML IV SCH (00:22)
[2016-06-01] MEDS: HYDROMORPHONE HCL/PF 2MG/ML CPJ IV PRN ×3 (02:33→14:08)
[2016-06-01] MEDS: DEXTROSE 5% WATER 1,000 ML IV SCH ×4 (03:34→22:55)
[2016-06-01 04:58] LABS: HEMATOCRIT. 32.3 % (36.0-48.0); HEMOGLOBIN. 10.7 g/dL (12.0-16.0); MEAN CORPUSCULAR HEMOGLOBIN 27.1 pg (28.0-32.0); MEAN CORPUSCULAR HGB CONC 33.2 g/dL (31.0-37.0); MEAN CORPUSCULAR VOLUME 81.7 fL (81.0-99.0); MEAN PLATELET VOLUME 10.3 fl (7.4-10.4); PLATELET 55 x1000/uL (130-400); RED BLOOD CELL COUNT 3.95 mill/uL (4.2-5.4); RED CELL DISTRIBUTION WIDTH 16.7 % (11.6-14.6); WHITE BLOOD COUNT 20.1 x1000/uL (4.5-11.0)
[2016-06-01 05:06] LABS: DIFFERENTIAL COMMENT 1
[2016-06-01] MEDS: HYDROCORTISONE SOD SUCCINATE 100 MG/2 ML VIAL IV SCH ×2 (05:27→17:14)
[2016-06-01] MEDS: DIPHENHYDRAMINE 50MG/ML VIAL IV PRN ×2 (05:27→14:08)
[2016-06-01] MEDS: NITROGLYCERIN OINT 1GM/INCH UDPKT TD SCH ×3 (05:28→21:55)
[2016-06-01] MEDS: METRONIDAZOLE 500 MG PREMIX 100 ML IV SCH ×3 (06:16→20:43)
[2016-06-01] MEDS: FAMOTIDINE 20MG/2ML VIAL IV SCH (08:03)
[2016-06-01 08:16] LABS: ACANTHOCYTES 1+; ANISOCYTOSIS 1+; PLATELET ESTIMATE DECREASED
[2016-06-01 08:18] LABS: GIANT PLATELETS FEW
[2016-06-01 13:12] LABS: MAGNESIUM 1.3 mg/dL (1.8-2.4); PHOSPHORUS 3.7 mg/dL (2.5-4.9); PREALBUMIN 21.2 mg/dL (20.0-40.0)
[2016-06-01] MEDS ORDERED: ENALAPRIL 1.25MG/ML VIAL 1ML IV PRN (15:05)
[2016-06-01] MEDS: TOTAL PARENTERAL NUTRITION 1,000 ML IV SCH (20:42)
[2016-06-01] MEDS: INSULIN LISPRO 100 UNITS/ML SUBCUT SCH (23:13)
[2016-06-01] MEDS: MORPHINE SULFATE 2 MG/ML CPJ (NOT FOR IM USE) IV PRN (23:20)
[2016-06-02] VITALS (12 sets, daily range): BP systolic 111–134; BP diastolic 64–89
[2016-06-02] MEDS: LEVOFLOXACIN 250MG PREMIX 50 ML IV SCH ×2 (00:04→23:27)
[2016-06-02] MEDS: HYDROMORPHONE HCL/PF 2MG/ML CPJ IV PRN ×6 (02:24→21:27)
[2016-06-02] MEDS: HYDRALAZINE 20MG/ML VIAL IV SCH ×6 (03:45→23:26)
[2016-06-02] MEDS: IPRATROPIUM/ALBUTEROL 0.5-3(2.5)MG/3ML NEB HHN SCH ×6 (04:00→20:05)
[2016-06-02] MEDS: METRONIDAZOLE 500 MG PREMIX 100 ML IV SCH ×3 (04:32→20:37)
[2016-06-02] MEDS: INSULIN LISPRO 100 UNITS/ML SUBCUT SCH ×4 (05:23→23:29)
[2016-06-02] MEDS: BLOOD SUGAR DIAGNOSTIC STRIP TEST SCH ×4 (05:23→23:29)
[2016-06-02] MEDS: HYDROCORTISONE SOD SUCCINATE 100 MG/2 ML VIAL IV SCH ×2 (05:25→17:06)
[2016-06-02] MEDS: NITROGLYCERIN OINT 1GM/INCH UDPKT TD SCH ×3 (05:26→21:10)
[2016-06-02] MEDS: MORPHINE SULFATE 2 MG/ML CPJ (NOT FOR IM USE) IV PRN (06:09)
[2016-06-02 07:48] LABS: HEMATOCRIT. 29.7 % (36.0-48.0); HEMOGLOBIN. 9.7 g/dL (12.0-16.0); MEAN CORPUSCULAR HEMOGLOBIN 26.9 pg (28.0-32.0); MEAN CORPUSCULAR HGB CONC 32.8 g/dL (31.0-37.0); RED BLOOD CELL COUNT 3.62 mill/uL (4.2-5.4); RED CELL DISTRIBUTION WIDTH 16.1 % (11.6-14.6); WHITE BLOOD COUNT 15.9 x1000/uL (4.5-11.0)
[2016-06-02 07:50] LABS: DIFFERENTIAL COMMENT 1
[2016-06-02] MEDS: FAMOTIDINE 20MG/2ML VIAL IV SCH (08:01)
[2016-06-02] MEDS: CLONIDINE HCL 0.3MG/24HR PATCH TD SCH (08:02)
[2016-06-02 08:18] LABS: ALANINE AMINOTRANSFERASE 69 IU/L (13-61); ALBUMIN 1.7 g/dL (3.4-5.0); ANION GAP 14; CALCIUM 7.8 mg/dL (8.5-10.1); CARBON DIOXIDE 23 mEq/L (21-32); CHLORIDE 107 mEq/L (98-107); INDEX HEMOLYSI 1 (1-3); INDEX ICTERIC 1 (1-4); INDEX LIPEMIC 1 (1-3); UREA NITROGEN BLOOD 44 mg/dL (7-21); eGFR 28 mL/min (>60)
[2016-06-02 09:31] LABS: ANISOCYTOSIS 1+
[2016-06-02 09:33] LABS: MEAN PLATELET VOLUME 9.1 fl (7.4-10.4); PLATELET 60 x1000/uL (130-400)
[2016-06-02] MEDS: DEXTROSE 5% WATER 1,000 ML IV SCH ×2 (10:20→14:47)
[2016-06-02] MEDS: TOTAL PARENTERAL NUTRITION 1,000 ML IV SCH ×2 (11:27→20:40)
[2016-06-02 16:27] LABS: PHOSPHORUS 3.2 mg/dL (2.5-4.9)
[2016-06-02] MEDS: FAT EMULSIONS 500 ML IV SCH (20:38)
[2016-06-03] VITALS (15 sets, daily range): BP systolic 83–153; BP diastolic 37–86
[2016-06-03] MEDS: IPRATROPIUM/ALBUTEROL 0.5-3(2.5)MG/3ML NEB HHN SCH ×7 (00:01→23:50)
[2016-06-03] MEDS: DIPHENHYDRAMINE 50MG/ML VIAL IV PRN ×2 (01:17→12:32)
[2016-06-03] MEDS: HYDROMORPHONE HCL/PF 2MG/ML CPJ IV PRN ×6 (02:14→21:55)
[2016-06-03] MEDS: HYDRALAZINE 20MG/ML VIAL IV SCH ×6 (03:53→23:59)
[2016-06-03] MEDS: INSULIN LISPRO 100 UNITS/ML SUBCUT SCH ×2 (05:21→18:45)
[2016-06-03] MEDS: BLOOD SUGAR DIAGNOSTIC STRIP TEST SCH ×2 (05:21→17:53)
[2016-06-03] MEDS: NITROGLYCERIN OINT 1GM/INCH UDPKT TD SCH ×3 (05:23→22:00)
[2016-06-03 06:20] LABS: HEMATOCRIT. 24.9 % (36.0-48.0); HEMOGLOBIN. 8.8 g/dL (12.0-16.0); MEAN CORPUSCULAR HEMOGLOBIN 29.3 pg (28.0-32.0); MEAN CORPUSCULAR HGB CONC 35.5 g/dL (31.0-37.0); MEAN CORPUSCULAR VOLUME 82.7 fL (81.0-99.0); MEAN PLATELET VOLUME 10.3 fl (7.4-10.4); RED BLOOD CELL COUNT 3.01 mill/uL (4.2-5.4); RED CELL DISTRIBUTION WIDTH 15.9 % (11.6-14.6); WHITE BLOOD COUNT 11.6 x1000/uL (4.5-11.0)
[2016-06-03 07:02] LABS: DIFFERENTIAL COMMENT 1
[2016-06-03 07:12] LABS: CALCIUM 7.8 mg/dL (8.5-10.1)
[2016-06-03] MEDS: METRONIDAZOLE 500 MG PREMIX 100 ML IV SCH ×2 (08:24→23:58)
[2016-06-03] MEDS: FAMOTIDINE 20MG/2ML VIAL IV SCH (08:24)
[2016-06-03] MEDS ORDERED: POTASSIUM CHLORIDE 20MEQ TABLET SR PO NR (09:30)
[2016-06-03] MEDS ORDERED: KCL 20MEQ/100ML PREMIX 100 ML IV NR (11:00)
[2016-06-03 12:48] LABS: ACANTHOCYTES 1+; ANISOCYTOSIS 1+; PLATELET ESTIMATE DECREASED
[2016-06-03 12:49] LABS: PLATELET 72 x1000/uL (130-400)
[2016-06-03] MEDS ORDERED: KCL 10MEQ/50ML PREMIX 50 ML IV NR (15:00)
[2016-06-03] MEDS: TOTAL PARENTERAL NUTRITION 1,000 ML IV SCH (15:36)
[2016-06-03] MEDS ORDERED: DIPHENHYDRAMINE 50MG/ML VIAL IV NR (16:30)
[2016-06-03] MEDS ORDERED: SODIUM CHLORIDE 0.9% 500 ML IV NR (16:30)
[2016-06-03] MEDS: CLONIDINE HCL 0.2MG/24HR PATCH TD SCH (18:00)
[2016-06-03] MEDS ORDERED: SODIUM CHLORIDE 0.9% 500 ML IV ONE ×2 (19:40→19:45)
[2016-06-03] MEDS ORDERED: DIPHENHYDRAMINE 50MG/ML VIAL IV PRN (19:45)
[2016-06-03] MEDS ORDERED: TOTAL PARENTERAL NUTRITION 1,000 ML IV SCH ×3 (21:00→21:20)
[2016-06-03] MEDS ORDERED: DEXTROSE 5% WATER 1,000 ML IV SCH (21:20)
[2016-06-03] MEDS ORDERED: DEXT 10% WATER 1,000 ML IV SCH (21:40)
[2016-06-03] MEDS ORDERED: NOREPINEPHRINE 4 MG in DEXT 5% WATER 246 ML IV PRN (23:45)
[2016-06-04] VITALS (68 sets, daily range): BP systolic 76–165; BP diastolic 36–90
[2016-06-04] MEDS: BLOOD SUGAR DIAGNOSTIC STRIP TEST SCH ×4 (00:02→20:00)
[2016-06-04] MEDS: MORPHINE SULFATE 2 MG/ML CPJ (NOT FOR IM USE) IV PRN ×2 (00:41→04:58)
[2016-06-04] MEDS: HYDROMORPHONE HCL/PF 2MG/ML CPJ IV PRN (03:02)
[2016-06-04] MEDS: HYDRALAZINE 20MG/ML VIAL IV SCH ×5 (03:53→20:00)
[2016-06-04] MEDS: IPRATROPIUM/ALBUTEROL 0.5-3(2.5)MG/3ML NEB HHN SCH ×5 (04:15→20:23)
[2016-06-04] MEDS: INSULIN LISPRO 100 UNITS/ML SUBCUT SCH ×5 (06:00→22:40)
[2016-06-04] MEDS: NITROGLYCERIN OINT 1GM/INCH UDPKT TD SCH ×3 (06:00→22:00)
[2016-06-04] MEDS: METRONIDAZOLE 500 MG PREMIX 100 ML IV SCH ×3 (06:09→22:31)
[2016-06-04] MEDS: HYDROCORTISONE SOD SUCCINATE 100 MG/2 ML VIAL IV SCH ×2 (06:09→18:35)
[2016-06-04 06:11] LABS: HEMATOCRIT. 25.8 % (36.0-48.0); HEMOGLOBIN. 8.6 g/dL (12.0-16.0); MEAN CORPUSCULAR HEMOGLOBIN 27.9 pg (28.0-32.0); MEAN CORPUSCULAR HGB CONC 33.3 g/dL (31.0-37.0); MEAN CORPUSCULAR VOLUME 83.8 fL (81.0-99.0); MEAN PLATELET VOLUME 11.4 fl (7.4-10.4); PLATELET 84 x1000/uL (130-400); RED BLOOD CELL COUNT 3.09 mill/uL (4.2-5.4); RED CELL DISTRIBUTION WIDTH 16.5 % (11.6-14.6); WHITE BLOOD COUNT 10.9 x1000/uL (4.5-11.0)
[2016-06-04 06:30] LABS: CHLORIDE 109 mEq/L (98-107); INDEX HEMOLYSI 3 (1-3); INDEX ICTERIC 1 (1-4); INDEX LIPEMIC 1 (1-3)
[2016-06-04 06:38] LABS: ALANINE AMINOTRANSFERASE 44 IU/L (13-61); ALBUMIN 1.4 g/dL (3.4-5.0); ANION GAP 16; CALCIUM 7.8 mg/dL (8.5-10.1); CARBON DIOXIDE 22 mEq/L (21-32); MAGNESIUM 1.7 mg/dL (1.8-2.4); UREA NITROGEN BLOOD 75 mg/dL (7-21); eGFR 14 mL/min (>60)
[2016-06-04 06:52] LABS: DIFFERENTIAL COMMENT 1
[2016-06-04 07:44] LABS: ACANTHOCYTES 1+; ANISOCYTOSIS 1+
[2016-06-04 07:45] LABS: PLATELET ESTIMATE DECREASED
[2016-06-04] MEDS ORDERED: PHENYLEPHRINE HCL 10 MG/ML 1ML (IV VIAL) IV ONE (08:03)
[2016-06-04] MEDS ORDERED: EPINEPHRINE 0.1MG/ML (1:10,000) 10ML SYR ONE (08:03)
[2016-06-04] MEDS ORDERED: BUPIVACAINE HCL 0.5% (5MG/ML) 50ML ONE (09:23)
[2016-06-04] MEDS ORDERED: ETOMIDATE 2MG/ML 10ML VIAL IV ONE (09:40)
[2016-06-04] MEDS ORDERED: FENTANYL CITRATE/PF 50MCG/ML 2ML VIAL ONE (09:42)
[2016-06-04] MEDS ORDERED: ROCURONIUM BROMIDE 10MG/ML VIAL 5ML IV ONE ×2 (09:52→12:01)
[2016-06-04] MEDS ORDERED: CALCIUM CHLORIDE 1GM/10ML SYR IV ONE (09:54)
[2016-06-04] MEDS ORDERED: MAGNESIUM 2 G PREMIX 50 ML IV NR (10:00)
[2016-06-04] MEDS: FAMOTIDINE 20MG/2ML VIAL IV SCH (10:02)
[2016-06-04] MEDS ORDERED: ALBUMIN HUMAN 12.5G/250ML (5%) IV ONE (10:05)
[2016-06-04 10:34] LABS: BG CARBOXYHEMOGLOBIN 0.3 % (0.5-1.5); BG DEOXYHEMOGLOBIN 5.4 % (0.0-5.0); BG FRACTION INSPIRED OXYGEN 21; BG HCO3 ACT 19.2 mmol/L (22.0-26.0); BG METHEMOGLOBIN 0.9 % (0.0-1.5); BG OXYGEN SATURATION 94.5 % (92.0-98.5); BG OXYHEMOGLOBIN 93.4 % (94.0-97.0); BG PCO2 28.4 mmHg (35.0-45.0); BG PH 7.448 (7.350-7.450); BG PO2 72.1 mmHg (75.0-100.0); BG SAMPLE SITE RIGHT BRACHIAL; BG TOTAL HEMOGLOBIN 9.2 g/dL (12.0-18.0); BG VENT MODE ROOM AIR
[2016-06-04 11:33] LABS: INR 1.2; PARTIAL THROMBOPLASTIN TIME 35.9 sec (24.0-34.0); PROTHROMBIN TIME 12.8 sec
[2016-06-04] MEDS ORDERED: MIDAZOLAM HCL 2 MG/2 ML VIAL ONE (12:00)
[2016-06-04 12:02] LABS: LACTIC ACID 2.3 mmol/L (0.4-2.0)
[2016-06-04 13:09] LABS: BG CARBOXYHEMOGLOBIN 0.3 % (0.5-1.5); BG DEOXYHEMOGLOBIN 10.2 % (0.0-5.0); BG HCO3 ACT 20.1 mmol/L (22.0-26.0); BG METHEMOGLOBIN 0.4 % (0.0-1.5); BG OXYGEN SATURATION 89.7 % (92.0-98.5); BG OXYHEMOGLOBIN 89.1 % (94.0-97.0); BG PCO2 47.7 mmHg (35.0-45.0); BG PH 7.242 (7.350-7.450); BG SAMPLE SITE RIGHT RADIAL; BG TIDAL VOLUME(mL) 500 mL; BG TOTAL HEMOGLOBIN 9.3 g/dL (12.0-18.0); BG VENT MODE VENT - A/C; BG VENT RATE 10 set
[2016-06-04] MEDS: MORPHINE SULFATE 4 MG/ML CPJ (NOT FOR IM USE) IV PRN ×2 (14:09→19:17)
[2016-06-04] MEDS ORDERED: TOTAL PARENTERAL NUTRITION 1,000 ML IV SCH ×2 (14:15→17:45)
[2016-06-04 14:25] LABS: BG BASE EXCESS -7.8 mmol/L (-2.0-2.0); BG CARBOXYHEMOGLOBIN 0.3 % (0.5-1.5); BG DEOXYHEMOGLOBIN 0.8 % (0.0-5.0); BG FRACTION INSPIRED OXYGEN 80; BG HCO3 ACT 17.6 mmol/L (22.0-26.0); BG METHEMOGLOBIN 0.3 % (0.0-1.5); BG OXYGEN SATURATION 99.2 % (92.0-98.5); BG OXYHEMOGLOBIN 98.6 % (94.0-97.0); BG PCO2 35.1 mmHg (35.0-45.0); BG PH 7.318 (7.350-7.450); BG SAMPLE SITE LEFT RADIAL; BG TIDAL VOLUME(mL) 500 mL; BG TOTAL HEMOGLOBIN 8.5 g/dL (12.0-18.0); BG VENT MODE VENT - A/C; BG VENT RATE 10 set
[2016-06-04 14:37] LABS: HEMOGLOBIN. 8.4 g/dL (12.0-16.0); MEAN CORPUSCULAR HEMOGLOBIN 27.1 pg (28.0-32.0); MEAN CORPUSCULAR HGB CONC 32.1 g/dL (31.0-37.0); MEAN CORPUSCULAR VOLUME 84.5 fL (81.0-99.0); PLATELET 98 x1000/uL (130-400); RED BLOOD CELL COUNT 3.08 mill/uL (4.2-5.4); RED CELL DISTRIBUTION WIDTH 16.7 % (11.6-14.6); WHITE BLOOD COUNT 13.4 x1000/uL (4.5-11.0)
[2016-06-04 14:40] LABS: DIFFERENTIAL COMMENT 1
[2016-06-04] MEDS ORDERED: LORAZEPAM 2MG/ML CPJ ONE (14:49)
[2016-06-04] MEDS: PROPOFOL 10MG/ML 100ML 100 ML IV PRN ×2 (14:53→22:42)
[2016-06-04 15:01] LABS: ACANTHOCYTES 1+; ANISOCYTOSIS 1+; PLATELET ESTIMATE DECREASED
[2016-06-04] MEDS ORDERED: SODIUM BICARBONATE 8.4% 1 MEQ/ML 50ML SYR IV SCH (15:10)
[2016-06-04 15:13] LABS: CALCIUM 8.4 mg/dL (8.5-10.1)
[2016-06-04] MEDS ORDERED: LORAZEPAM 2MG/ML CPJ IV SCH (15:15)
[2016-06-04] MEDS ORDERED: AZTREONAM IV SCH (16:00)
[2016-06-04] MEDS ORDERED: SODIUM CHLORIDE 0.9% IV SCH (16:00)
[2016-06-04] MEDS ORDERED: VANCOMYCIN 1 G PREMIX 200 ML IV SCH (17:00)
[2016-06-04] MEDS ORDERED: INSULIN LISPRO 100 UNITS/ML SUBCUT SCH (20:00)
[2016-06-04] MEDS: MEROPENEM 500 MG in SODIUM CHLORIDE 0.9% 50 ML IV SCH (22:30)
[2016-06-04 22:50] LABS: HEMATOCRIT 22.2 % (36.0-48.0); HEMOGLOBIN 7.3 g/dL (12.0-16.0)
[2016-06-05] VITALS (104 sets, daily range): BP systolic 91–165; BP diastolic 59–104
[2016-06-05] MEDS: IPRATROPIUM/ALBUTEROL 0.5-3(2.5)MG/3ML NEB HHN SCH ×6 (00:07→20:19)
[2016-06-05] MEDS: AZTREONAM 500 MG in DEXTROSE 5% WATER 50 ML IV SCH ×2 (01:09→11:21)
[2016-06-05] MEDS: INSULIN LISPRO 100 UNITS/ML SUBCUT SCH ×6 (01:11→20:49)
[2016-06-05] MEDS: TOTAL PARENTERAL NUTRITION 1,000 ML IV SCH ×2 (01:21→16:26)
[2016-06-05] MEDS: HYDRALAZINE 20MG/ML VIAL IV SCH ×7 (04:00→23:15)
[2016-06-05] MEDS: BLOOD SUGAR DIAGNOSTIC STRIP TEST SCH ×6 (04:51→20:44)
[2016-06-05] MEDS: METRONIDAZOLE 500 MG PREMIX 100 ML IV SCH ×3 (05:09→21:15)
[2016-06-05] MEDS: MEROPENEM 500 MG in SODIUM CHLORIDE 0.9% 50 ML IV SCH (05:09)
[2016-06-05] MEDS: HYDROCORTISONE SOD SUCCINATE 100 MG/2 ML VIAL IV SCH ×2 (05:11→18:06)
[2016-06-05] MEDS: NITROGLYCERIN OINT 1GM/INCH UDPKT TD SCH ×3 (05:12→21:15)
[2016-06-05] MEDS: PROPOFOL 10MG/ML 100ML 100 ML IV PRN ×4 (05:38→22:42)
[2016-06-05 05:40] LABS: HEMATOCRIT. 21.9 % (36.0-48.0); HEMOGLOBIN. 7.2 g/dL (12.0-16.0); MEAN CORPUSCULAR HEMOGLOBIN 27.1 pg (28.0-32.0); MEAN CORPUSCULAR HGB CONC 32.8 g/dL (31.0-37.0); MEAN CORPUSCULAR VOLUME 82.9 fL (81.0-99.0); MEAN PLATELET VOLUME 11.4 fl (7.4-10.4); PLATELET 86 x1000/uL (130-400); RED BLOOD CELL COUNT 2.64 mill/uL (4.2-5.4); RED CELL DISTRIBUTION WIDTH 16.8 % (11.6-14.6); WHITE BLOOD COUNT 11.6 x1000/uL (4.5-11.0)
[2016-06-05 05:45] LABS: DIFFERENTIAL COMMENT 1
[2016-06-05 06:00] LABS: CALCIUM 7.7 mg/dL (8.5-10.1)
[2016-06-05 07:43] LABS: ACANTHOCYTES 1+; ANISOCYTOSIS 1+; PLATELET ESTIMATE DECREASED; TOXIC GRANULATION 2+
[2016-06-05 08:21] LABS: BG BASE EXCESS -4.8 mmol/L (-2.0-2.0); BG CARBOXYHEMOGLOBIN 0.2 % (0.5-1.5); BG DEOXYHEMOGLOBIN 1.3 % (0.0-5.0); BG FRACTION INSPIRED OXYGEN 40; BG HCO3 ACT 19.6 mmol/L (22.0-26.0); BG METHEMOGLOBIN 0.5 % (0.0-1.5); BG OXYGEN SATURATION 98.7 % (92.0-98.5); BG PCO2 33.1 mmHg (35.0-45.0); BG PH 7.391 (7.350-7.450); BG PO2 163.8 mmHg (75.0-100.0); BG SAMPLE SITE RIGHT RADIAL; BG TIDAL VOLUME(mL) 500 mL; BG TOTAL HEMOGLOBIN 7.4 g/dL (12.0-18.0); BG VENT MODE VENT - A/C; BG VENT RATE 10 set
[2016-06-05] MEDS: FAMOTIDINE 20MG/2ML VIAL IV SCH (09:04)
[2016-06-05] MEDS ORDERED: VANCOMYCIN 500 MG PREMIX 100 ML IV SCH (12:00)
[2016-06-05] MEDS ORDERED: FAT EMULSIONS 500 ML IV SCH (21:00)
[2016-06-06] VITALS (53 sets, daily range): BP systolic 91–142; BP diastolic 59–97
[2016-06-06] MEDS: BLOOD SUGAR DIAGNOSTIC STRIP TEST SCH ×7 (00:24→23:56)
[2016-06-06] MEDS: INSULIN LISPRO 100 UNITS/ML SUBCUT SCH ×6 (00:27→20:50)
[2016-06-06] MEDS: MORPHINE SULFATE 4 MG/ML CPJ (NOT FOR IM USE) IV PRN ×3 (00:28→08:05)
[2016-06-06] MEDS: IPRATROPIUM/ALBUTEROL 0.5-3(2.5)MG/3ML NEB HHN SCH ×6 (00:39→20:20)
[2016-06-06] MEDS: PROPOFOL 10MG/ML 100ML 100 ML IV PRN ×2 (02:51→08:35)
[2016-06-06] MEDS: HYDRALAZINE 20MG/ML VIAL IV SCH ×5 (04:00→20:00)
[2016-06-06] MEDS: HYDROCORTISONE SOD SUCCINATE 100 MG/2 ML VIAL IV SCH ×2 (05:35→17:29)
[2016-06-06] MEDS: METRONIDAZOLE 500 MG PREMIX 100 ML IV SCH ×2 (05:35→13:23)
[2016-06-06] MEDS: NITROGLYCERIN OINT 1GM/INCH UDPKT TD SCH ×3 (05:35→22:38)
[2016-06-06 06:08] LABS: ALBUMIN 1.4 g/dL (3.4-5.0); ANION GAP 17; CARBON DIOXIDE 23 mEq/L (21-32); CHLORIDE 108 mEq/L (98-107); INDEX HEMOLYSI 1 (1-3); INDEX ICTERIC 1 (1-4); INDEX LIPEMIC 4 (1-3); TRIGLYCERIDE 574 mg/dL (0-150); TROPONIN I 0.03 ng/mL (0.00-0.04); eGFR 20 mL/min (>60)
[2016-06-06 06:23] LABS: HEMATOCRIT. 31.8 % (36.0-48.0); HEMOGLOBIN. 11.4 g/dL (12.0-16.0); MEAN CORPUSCULAR HEMOGLOBIN 30.7 pg (28.0-32.0); MEAN CORPUSCULAR HGB CONC 35.8 g/dL (31.0-37.0); MEAN CORPUSCULAR VOLUME 85.6 fL (81.0-99.0); MEAN PLATELET VOLUME 11.3 fl (7.4-10.4); RED BLOOD CELL COUNT 3.72 mill/uL (4.2-5.4); RED CELL DISTRIBUTION WIDTH 16.3 % (11.6-14.6); WHITE BLOOD COUNT 11.2 x1000/uL (4.5-11.0)
[2016-06-06 06:27] LABS: DIFFERENTIAL COMMENT 1
[2016-06-06 06:28] LABS: CALCIUM 7.4 mg/dL (8.5-10.1)
[2016-06-06] MEDS: TOTAL PARENTERAL NUTRITION 1,000 ML IV SCH ×2 (06:48→13:40)
[2016-06-06 07:57] LABS: UREA NITROGEN BLOOD 77 mg/dL (7-21)
[2016-06-06 08:00] LABS: BG BASE EXCESS -4.6 mmol/L (-2.0-2.0); BG CARBOXYHEMOGLOBIN 0.3 % (0.5-1.5); BG DEOXYHEMOGLOBIN 1.7 % (0.0-5.0); BG FRACTION INSPIRED OXYGEN 40; BG HCO3 ACT 19.8 mmol/L (22.0-26.0); BG METHEMOGLOBIN 0.4 % (0.0-1.5); BG OXYGEN SATURATION 98.3 % (92.0-98.5); BG OXYHEMOGLOBIN 97.6 % (94.0-97.0); BG PCO2 33.9 mmHg (35.0-45.0); BG PH 7.384 (7.350-7.450); BG PO2 141.1 mmHg (75.0-100.0); BG SAMPLE SITE RIGHT RADIAL; BG TIDAL VOLUME(mL) 500 mL; BG TOTAL HEMOGLOBIN 10.7 g/dL (12.0-18.0); BG VENT MODE VENT - A/C; BG VENT RATE 10 set
[2016-06-06] MEDS: FAMOTIDINE 20MG/2ML VIAL IV SCH (08:04)
[2016-06-06 08:07] LABS: ANISOCYTOSIS 1+; NUCLEATED RED BLOOD CELLS 1 /100 WBC; PLATELET ESTIMATE DECREASED
[2016-06-06 08:10] LABS: PLATELET 90 x1000/uL (130-400)
[2016-06-06] MEDS ORDERED: POTASSIUM CHLORIDE INJ 40 MEQ in DEXT 5% WATER 250 ML IV SCH (09:00)
[2016-06-06 09:51] LABS: ALANINE AMINOTRANSFERASE 29 IU/L (13-61)
[2016-06-06] MEDS ORDERED: LORAZEPAM 2MG/ML CPJ ONE (09:53)
[2016-06-06] MEDS ORDERED: LORAZEPAM 2MG/ML CPJ IV SCH (10:00)
[2016-06-06 10:57] LABS: BG BASE EXCESS -4.6 mmol/L (-2.0-2.0); BG CARBOXYHEMOGLOBIN 0.3 % (0.5-1.5); BG DEOXYHEMOGLOBIN 1.3 % (0.0-5.0); BG FRACTION INSPIRED OXYGEN 40; BG METHEMOGLOBIN 0.1 % (0.0-1.5); BG OXYGEN SATURATION 98.7 % (92.0-98.5); BG OXYHEMOGLOBIN 98.3 % (94.0-97.0); BG PCO2 30.6 mmHg (35.0-45.0); BG PH 7.412 (7.350-7.450); BG PO2 183.9 mmHg (75.0-100.0); BG PRESSURE SUPPORT 8; BG SAMPLE SITE RIGHT RADIAL; BG TOTAL HEMOGLOBIN 11.3 g/dL (12.0-18.0); BG VENT MODE VENT - CPAP
[2016-06-06 11:15] LABS: PHOSPHORUS 3.9 mg/dL (2.5-4.9)
[2016-06-06] MEDS: MORPHINE SULFATE 2 MG/ML CPJ (NOT FOR IM USE) IV PRN ×2 (13:41→16:28)
[2016-06-06] MEDS ORDERED: VANCOMYCIN 1 G PREMIX 200 ML IV NR (18:00)
[2016-06-06] MEDS: MEROPENEM 500 MG in SODIUM CHLORIDE 0.9% 50 ML IV SCH (20:50)
[2016-06-07] VITALS (29 sets, daily range): BP systolic 115–155; BP diastolic 67–105
[2016-06-07] MEDS: IPRATROPIUM/ALBUTEROL 0.5-3(2.5)MG/3ML NEB HHN SCH ×6 (00:01→20:24)
[2016-06-07] MEDS: HYDRALAZINE 20MG/ML VIAL IV SCH ×6 (00:02→20:28)
[2016-06-07] MEDS: INSULIN LISPRO 100 UNITS/ML SUBCUT SCH ×6 (00:03→20:00)
[2016-06-07] MEDS: TOTAL PARENTERAL NUTRITION 1,000 ML IV SCH ×2 (02:46→18:16)
[2016-06-07] MEDS: MORPHINE SULFATE 2 MG/ML CPJ (NOT FOR IM USE) IV PRN ×3 (02:48→20:27)
[2016-06-07] MEDS: BLOOD SUGAR DIAGNOSTIC STRIP TEST SCH ×5 (04:00→20:13)
[2016-06-07 05:19] LABS: HEMATOCRIT. 28.7 % (36.0-48.0); HEMOGLOBIN. 9.8 g/dL (12.0-16.0); MEAN CORPUSCULAR HEMOGLOBIN 28.7 pg (28.0-32.0); MEAN CORPUSCULAR VOLUME 84.4 fL (81.0-99.0); MEAN PLATELET VOLUME 11.1 fl (7.4-10.4); PLATELET 87 x1000/uL (130-400); RED BLOOD CELL COUNT 3.41 mill/uL (4.2-5.4); RED CELL DISTRIBUTION WIDTH 16.1 % (11.6-14.6); WHITE BLOOD COUNT 13.8 x1000/uL (4.5-11.0)
[2016-06-07 05:24] LABS: DIFFERENTIAL COMMENT 1
[2016-06-07] MEDS: NITROGLYCERIN OINT 1GM/INCH UDPKT TD SCH ×3 (06:01→23:00)
[2016-06-07] MEDS: HYDROCORTISONE SOD SUCCINATE 100 MG/2 ML VIAL IV SCH (06:03)
[2016-06-07 06:39] LABS: CALCIUM 7.7 mg/dL (8.5-10.1); MAGNESIUM 1.8 mg/dL (1.8-2.4); T4 FREE 0.89 ng/dL (0.76-1.46); THYROID STIMULATING HORMONE 2.8 uIU/mL (0.36-3.74)
[2016-06-07] MEDS ORDERED: POTASSIUM CHLORIDE INJ 40 MEQ in DEXT 5% WATER 500 ML IV NR (09:00)
[2016-06-07 09:05] LABS: ANISOCYTOSIS 1+; PLATELET ESTIMATE DECREASED
[2016-06-07] MEDS: FAMOTIDINE 20MG/2ML VIAL IV SCH (09:56)
[2016-06-07] MEDS: MEROPENEM 500 MG in SODIUM CHLORIDE 0.9% 50 ML IV SCH ×2 (09:56→20:28)
[2016-06-07] MEDS: MORPHINE SULFATE 4 MG/ML CPJ (NOT FOR IM USE) IV PRN ×2 (17:25→23:08)
[2016-06-08] VITALS (24 sets, daily range): BP systolic 134–161; BP diastolic 70–105
[2016-06-08] MEDS: IPRATROPIUM/ALBUTEROL 0.5-3(2.5)MG/3ML NEB HHN SCH ×4 (00:21→20:20)
[2016-06-08] MEDS: BLOOD SUGAR DIAGNOSTIC STRIP TEST SCH ×7 (00:52→23:47)
[2016-06-08] MEDS: HYDRALAZINE 20MG/ML VIAL IV SCH ×6 (00:59→20:35)
[2016-06-08] MEDS: MORPHINE SULFATE 2 MG/ML CPJ (NOT FOR IM USE) IV PRN ×2 (03:59→11:44)
[2016-06-08] MEDS: INSULIN LISPRO 100 UNITS/ML SUBCUT SCH ×7 (04:00→23:56)
[2016-06-08 05:36] LABS: HEMATOCRIT. 30.8 % (36.0-48.0); HEMOGLOBIN. 10.4 g/dL (12.0-16.0); MEAN CORPUSCULAR HEMOGLOBIN 28.7 pg (28.0-32.0); MEAN CORPUSCULAR HGB CONC 33.8 g/dL (31.0-37.0); MEAN CORPUSCULAR VOLUME 84.9 fL (81.0-99.0); MEAN PLATELET VOLUME 9.6 fl (7.4-10.4); PLATELET 78 x1000/uL (130-400); RED BLOOD CELL COUNT 3.62 mill/uL (4.2-5.4); RED CELL DISTRIBUTION WIDTH 16.6 % (11.6-14.6); WHITE BLOOD COUNT 11.1 x1000/uL (4.5-11.0)
[2016-06-08] MEDS: NITROGLYCERIN OINT 1GM/INCH UDPKT TD SCH ×3 (05:40→22:37)
[2016-06-08 05:53] LABS: DIFFERENTIAL COMMENT 1
[2016-06-08 06:31] LABS: INDEX HEMOLYSI 2 (1-3); INDEX ICTERIC 1 (1-4); INDEX LIPEMIC 1 (1-3)
[2016-06-08 06:33] LABS: CHLORIDE 118 mEq/L (98-107)
[2016-06-08 07:03] LABS: ALANINE AMINOTRANSFERASE 37 IU/L (13-61); ALBUMIN 1.5 g/dL (3.4-5.0); ANION GAP 12; CALCIUM 7.7 mg/dL (8.5-10.1); CARBON DIOXIDE 28 mEq/L (21-32); MAGNESIUM 1.7 mg/dL (1.8-2.4); PHOSPHORUS 2.5 mg/dL (2.5-4.9); UREA NITROGEN BLOOD 60 mg/dL (7-21); eGFR 41 mL/min (>60)
[2016-06-08] MEDS: TOTAL PARENTERAL NUTRITION 1,000 ML IV SCH ×2 (08:03→22:46)
[2016-06-08 09:11] LABS: ANISOCYTOSIS 1+; PLATELET ESTIMATE DECREASED
[2016-06-08] MEDS: FAMOTIDINE 20MG/2ML VIAL IV SCH (09:15)
[2016-06-08] MEDS: MEROPENEM 500 MG in SODIUM CHLORIDE 0.9% 50 ML IV SCH (09:16)
[2016-06-08] MEDS ORDERED: DEXT 5% WATER 500 ML IV ONE (09:30)
[2016-06-08] MEDS: MORPHINE SULFATE 4 MG/ML CPJ (NOT FOR IM USE) IV PRN ×2 (10:40→18:10)
[2016-06-08] MEDS: HYDROCORTISONE SOD SUCCINATE 100 MG/2 ML VIAL IV SCH ×2 (11:16→22:36)
[2016-06-08] MEDS: ENALAPRIL 1.25MG/ML VIAL 1ML IV PRN (11:17)
[2016-06-08] MEDS ORDERED: VANCOMYCIN 1 G PREMIX 200 ML IV SCH (16:00)
[2016-06-08] MEDS: MEROPENEM 1,000 MG in SODIUM CHLORIDE 0.9% 100 ML IV SCH (20:45)
[2016-06-09] VITALS (48 sets, daily range): BP systolic 109–169; BP diastolic 37–112
[2016-06-09] MEDS: HYDRALAZINE 20MG/ML VIAL IV SCH ×7 (00:15→23:46)
[2016-06-09] MEDS: IPRATROPIUM/ALBUTEROL 0.5-3(2.5)MG/3ML NEB HHN SCH ×5 (00:21→20:12)
[2016-06-09] MEDS: ENALAPRIL 1.25MG/ML VIAL 1ML IV PRN (02:57)
[2016-06-09] MEDS: ONDANSETRON HCL 4MG/2ML VIAL IV PRN (03:29)
[2016-06-09] MEDS: BLOOD SUGAR DIAGNOSTIC STRIP TEST SCH ×6 (03:40→23:47)
[2016-06-09] MEDS: INSULIN LISPRO 100 UNITS/ML SUBCUT SCH ×6 (03:43→23:47)
[2016-06-09] MEDS: NITROGLYCERIN OINT 1GM/INCH UDPKT TD SCH ×3 (05:46→21:06)
[2016-06-09 06:11] LABS: HEMATOCRIT. 31.4 % (36.0-48.0); HEMOGLOBIN. 10.6 g/dL (12.0-16.0); MEAN CORPUSCULAR HEMOGLOBIN 28.4 pg (28.0-32.0); MEAN CORPUSCULAR HGB CONC 33.6 g/dL (31.0-37.0); MEAN CORPUSCULAR VOLUME 84.6 fL (81.0-99.0); PLATELET 60 x1000/uL (130-400); RED BLOOD CELL COUNT 3.72 mill/uL (4.2-5.4); RED CELL DISTRIBUTION WIDTH 16.9 % (11.6-14.6); WHITE BLOOD COUNT 12.6 x1000/uL (4.5-11.0)
[2016-06-09 06:17] LABS: DIFFERENTIAL COMMENT 1
[2016-06-09 06:28] LABS: CALCIUM 7.9 mg/dL (8.5-10.1); MAGNESIUM 1.7 mg/dL (1.8-2.4)
[2016-06-09 06:33] LABS: PHOSPHORUS 2.6 mg/dL (2.5-4.9)
[2016-06-09] MEDS: MEROPENEM 1,000 MG in SODIUM CHLORIDE 0.9% 100 ML IV SCH ×2 (08:23→20:30)
[2016-06-09] MEDS: FAMOTIDINE 20MG/2ML VIAL IV SCH (08:24)
[2016-06-09] MEDS: MORPHINE SULFATE 2 MG/ML CPJ (NOT FOR IM USE) IV PRN ×3 (08:24→23:47)
[2016-06-09] MEDS: HYDROCORTISONE SOD SUCCINATE 100 MG/2 ML VIAL IV SCH ×2 (08:24→21:06)
[2016-06-09 08:50] LABS: ANISOCYTOSIS 1+; PLATELET ESTIMATE DECREASED
[2016-06-09] MEDS: DEXTROSE 5% WATER 1,000 ML IV SCH ×2 (09:00→13:00)
[2016-06-09] MEDS ORDERED: CLONIDINE HCL 0.3MG/24HR PATCH TD SCH (09:00)
[2016-06-09] MEDS: TOTAL PARENTERAL NUTRITION 1,000 ML IV SCH (13:23)
[2016-06-09] MEDS ORDERED: MAGNESIUM 2 G PREMIX 50 ML IV NR (14:00)
[2016-06-09] MEDS ORDERED: VANCOMYCIN 1 G PREMIX 200 ML IV SCH (18:00)
[2016-06-09] MEDS: FAT EMULSIONS 500 ML IV SCH (20:31)
[2016-06-10] VITALS (46 sets, daily range): BP systolic 116–174; BP diastolic 48–103
[2016-06-10] MEDS: IPRATROPIUM/ALBUTEROL 0.5-3(2.5)MG/3ML NEB HHN SCH ×7 (00:19→23:59)
[2016-06-10] MEDS: TOTAL PARENTERAL NUTRITION 1,000 ML IV SCH ×3 (03:23→21:00)
[2016-06-10] MEDS: MORPHINE SULFATE 2 MG/ML CPJ (NOT FOR IM USE) IV PRN (03:44)
[2016-06-10] MEDS: HYDRALAZINE 20MG/ML VIAL IV SCH ×5 (03:44→20:00)
[2016-06-10] MEDS: BLOOD SUGAR DIAGNOSTIC STRIP TEST SCH ×5 (04:20→20:53)
[2016-06-10 05:32] LABS: MEAN CORPUSCULAR VOLUME 85.8 fL (81.0-99.0); MEAN PLATELET VOLUME 11.1 fl (7.4-10.4); PLATELET 57 x1000/uL (130-400); RED BLOOD CELL COUNT 3.26 mill/uL (4.2-5.4); RED CELL DISTRIBUTION WIDTH 17.1 % (11.6-14.6); WHITE BLOOD COUNT 14.2 x1000/uL (4.5-11.0)
[2016-06-10] MEDS: INSULIN LISPRO 100 UNITS/ML SUBCUT SCH ×5 (05:35→21:00)
[2016-06-10] MEDS: NITROGLYCERIN OINT 1GM/INCH UDPKT TD SCH ×3 (05:39→22:09)
[2016-06-10] MEDS: HYDROMORPHONE HCL/PF 2MG/ML CPJ IV PRN ×4 (05:44→22:09)
[2016-06-10 05:57] LABS: PHOSPHORUS 2.3 mg/dL (2.5-4.9)
[2016-06-10 06:04] LABS: CALCIUM 6.9 mg/dL (8.5-10.1)
[2016-06-10 06:28] LABS: DIFFERENTIAL COMMENT 1
[2016-06-10 06:29] LABS: HEMOGLOBIN. 9.4 g/dL (12.0-16.0); MEAN CORPUSCULAR HEMOGLOBIN 29.1 pg (28.0-32.0); MEAN CORPUSCULAR HGB CONC 33.7 g/dL (31.0-37.0)
[2016-06-10 08:41] LABS: PLATELET ESTIMATE DECREASED
[2016-06-10 08:42] LABS: ANISOCYTOSIS 1+
[2016-06-10] MEDS: MEROPENEM 1,000 MG in SODIUM CHLORIDE 0.9% 100 ML IV SCH ×2 (08:44→21:00)
[2016-06-10] MEDS: DEXTROSE 5% WATER 1,000 ML IV SCH (08:44)
[2016-06-10] MEDS: FAMOTIDINE 20MG/2ML VIAL IV SCH (08:45)
[2016-06-10] MEDS: CLONIDINE HCL 0.2MG/24HR PATCH TD SCH (08:47)
[2016-06-10] MEDS ORDERED: POTASSIUM PHOS,M-BASIC-D-BASIC 15 MMOL in DEXT 5% WATER 245 ML IV NR (09:00)
[2016-06-10] MEDS: HYDROCORTISONE SOD SUCCINATE 100 MG/2 ML VIAL IV SCH ×2 (09:34→22:08)
[2016-06-11] VITALS (35 sets, daily range): BP systolic 46–162; BP diastolic 23–106
[2016-06-11] MEDS: BLOOD SUGAR DIAGNOSTIC STRIP TEST SCH ×6 (00:15→20:54)
[2016-06-11] MEDS: HYDRALAZINE 20MG/ML VIAL IV SCH ×6 (00:40→20:00)
[2016-06-11] MEDS: HYDROMORPHONE HCL/PF 2MG/ML CPJ IV PRN ×6 (01:22→20:54)
[2016-06-11] MEDS: DEXTROSE 5% WATER 1,000 ML IV SCH ×3 (02:17→16:09)
[2016-06-11] MEDS: IPRATROPIUM/ALBUTEROL 0.5-3(2.5)MG/3ML NEB HHN SCH ×2 (04:00→08:08)
[2016-06-11] MEDS: INSULIN LISPRO 100 UNITS/ML SUBCUT SCH ×6 (04:43→20:00)
[2016-06-11] MEDS: NITROGLYCERIN OINT 1GM/INCH UDPKT TD SCH ×3 (05:15→21:56)
[2016-06-11 05:40] LABS: HEMATOCRIT. 25.8 % (36.0-48.0); HEMOGLOBIN. 8.6 g/dL (12.0-16.0); MEAN CORPUSCULAR HEMOGLOBIN 28.6 pg (28.0-32.0); MEAN CORPUSCULAR HGB CONC 33.2 g/dL (31.0-37.0); MEAN CORPUSCULAR VOLUME 86.2 fL (81.0-99.0); MEAN PLATELET VOLUME 8.7 fl (7.4-10.4); RED BLOOD CELL COUNT 2.99 mill/uL (4.2-5.4); RED CELL DISTRIBUTION WIDTH 17.1 % (11.6-14.6); WHITE BLOOD COUNT 16.7 x1000/uL (4.5-11.0)
[2016-06-11 05:54] LABS: PARTIAL THROMBOPLASTIN TIME 24.4 sec (24.0-34.0)
[2016-06-11 05:56] LABS: ANION GAP 12; CARBON DIOXIDE 28 mEq/L (21-32); CHLORIDE 118 mEq/L (98-107); UREA NITROGEN BLOOD 41 mg/dL (7-21)
[2016-06-11 05:57] LABS: CALCIUM 7.4 mg/dL (8.5-10.1); INDEX HEMOLYSI 1 (1-3); INDEX ICTERIC 1 (1-4); INDEX LIPEMIC 1 (1-3); MAGNESIUM 1.8 mg/dL (1.8-2.4); PHOSPHORUS 2.8 mg/dL (2.5-4.9); eGFR > 60 mL/min (>60)
[2016-06-11 06:11] LABS: DIFFERENTIAL COMMENT 1
[2016-06-11 06:14] LABS: PLATELET 31 x1000/uL (130-400)
[2016-06-11] MEDS: HYDROCORTISONE SOD SUCCINATE 100 MG/2 ML VIAL IV SCH ×2 (08:39→21:56)
[2016-06-11] MEDS: MEROPENEM 1,000 MG in SODIUM CHLORIDE 0.9% 100 ML IV SCH ×2 (08:41→21:56)
[2016-06-11 10:31] LABS: ANISOCYTOSIS 2+; PLATELET ESTIMATE MARKEDLY DECREASED
[2016-06-11] MEDS: TOTAL PARENTERAL NUTRITION 1,000 ML IV SCH (10:41)
[2016-06-11] MEDS: PANTOPRAZOLE SODIUM 40 MG/VIAL IV SCH (10:41)
[2016-06-11 12:46] LABS: HEMATOCRIT. 25.3 % (36.0-48.0); HEMOGLOBIN. 8.2 g/dL (12.0-16.0); MEAN CORPUSCULAR HGB CONC 32.5 g/dL (31.0-37.0); MEAN PLATELET VOLUME 9.3 fl (7.4-10.4); RED BLOOD CELL COUNT 2.94 mill/uL (4.2-5.4); RED CELL DISTRIBUTION WIDTH 16.9 % (11.6-14.6); WHITE BLOOD COUNT 15.5 x1000/uL (4.5-11.0)
[2016-06-11 13:01] LABS: DIFFERENTIAL COMMENT 1
[2016-06-11 14:01] LABS: ANISOCYTOSIS 1+; PLATELET ESTIMATE MARKEDLY DECREASED
[2016-06-11 14:02] LABS: PLATELET 25 x1000/uL (130-400)
[2016-06-11] MEDS: ACETAMINOPHEN 650MG/20.3ML UDC PO PRN (18:27)
[2016-06-11] MEDS: IPRATROPIUM BROMIDE (0.02%) 0.5MG/2.5ML NEB HHN SCH (19:40)
[2016-06-11 19:51] LABS: CLARITY URINE CLEAR (CLEAR); COLOR URINE YELLOW (YELLOW); GLUCOSE URINE 2+ (NEGATIVE); KETONES URINE NEGATIVE (NEGATIVE); LEUKOCYTE ESTERASE URINE 1+ (NEGATIVE); NITRITE URINE NEGATIVE (NEGATIVE); OCCULT BLOOD URINE 2+ (NEGATIVE); PROTEIN URINE 1+ (NEGATIVE); SPECIFIC GRAVITY URINE 1.015 (1.005-1.030); UROBILINOGEN URINE 0.2 E.U./dL (0.2-1.0)
[2016-06-11 20:29] LABS: BACTERIA URINE TRACE; SQUAMOUS EPITHELIAL CELL URINE RARE /lpf (RARE/1+); YEAST URINE 2+
[2016-06-11 20:30] LABS: RBC URINE 0-2 /hpf (0-2)
[2016-06-12] VITALS (61 sets, daily range): BP systolic 93–169; BP diastolic 54–135
[2016-06-12] MEDS: HYDRALAZINE 20MG/ML VIAL IV SCH ×6 (00:25→20:13)
[2016-06-12] MEDS: BLOOD SUGAR DIAGNOSTIC STRIP TEST SCH ×6 (00:26→20:05)
[2016-06-12] MEDS: TOTAL PARENTERAL NUTRITION 1,000 ML IV SCH ×2 (00:26→17:36)
[2016-06-12] MEDS: INSULIN LISPRO 100 UNITS/ML SUBCUT SCH ×6 (00:54→20:17)
[2016-06-12] MEDS: IPRATROPIUM BROMIDE (0.02%) 0.5MG/2.5ML NEB HHN SCH ×4 (01:29→20:05)
[2016-06-12 05:39] LABS: BASOPHILS % 0.3 % (0.0-2.0); EOSINOPHILS % 0.3 % (0.0-5.0); HEMATOCRIT. 22.2 % (36.0-48.0); HEMOGLOBIN. 7.2 g/dL (12.0-16.0); LYMPHOCYTES % 9.2 % (20.0-50.0); MEAN CORPUSCULAR HGB CONC 32.3 g/dL (31.0-37.0); MEAN CORPUSCULAR VOLUME 86.8 fL (81.0-99.0); MONOCYTES % 6.8 % (2.0-8.0); NEUTROPHILS % 83.4 % (40.0-76.0); RED BLOOD CELL COUNT 2.55 mill/uL (4.2-5.4); RED CELL DISTRIBUTION WIDTH 17.1 % (11.6-14.6); WHITE BLOOD COUNT 13.7 x1000/uL (4.5-11.0)
[2016-06-12 05:43] LABS: PARTIAL THROMBOPLASTIN TIME 26.1 sec (24.0-34.0); PROTHROMBIN TIME 10.6 sec
[2016-06-12 05:48] LABS: DIFFERENTIAL COMMENT 1
[2016-06-12] MEDS: NITROGLYCERIN OINT 1GM/INCH UDPKT TD SCH ×3 (06:09→21:28)
[2016-06-12 06:18] LABS: ANION GAP 9; CALCIUM 7.3 mg/dL (8.5-10.1); CARBON DIOXIDE 29 mEq/L (21-32); CHLORIDE 117 mEq/L (98-107); INDEX HEMOLYSI 1 (1-3); INDEX ICTERIC 1 (1-4); INDEX LIPEMIC 1 (1-3); MAGNESIUM 1.7 mg/dL (1.8-2.4); PHOSPHORUS 2.5 mg/dL (2.5-4.9); UREA NITROGEN BLOOD 36 mg/dL (7-21); eGFR > 60 mL/min (>60)
[2016-06-12 07:01] LABS: MEAN PLATELET VOLUME 9.3 fl (7.4-10.4); PLATELET 25 x1000/uL (130-400)
[2016-06-12] MEDS ORDERED: MAGNESIUM 2 G PREMIX 50 ML IV NR (08:00)
[2016-06-12] MEDS: PANTOPRAZOLE SODIUM 40 MG/VIAL IV SCH (08:18)
[2016-06-12] MEDS: HYDROCORTISONE SOD SUCCINATE 100 MG/2 ML VIAL IV SCH ×2 (08:20→21:25)
[2016-06-12] MEDS ORDERED: POTASSIUM CHLORIDE INJ 40 MEQ in DEXT 5% WATER 250 ML IV NR (09:00)
[2016-06-12] MEDS: HYDROMORPHONE HCL/PF 2MG/ML CPJ IV PRN ×2 (09:02→20:31)
[2016-06-12] MEDS: MEROPENEM 1,000 MG in SODIUM CHLORIDE 0.9% 100 ML IV SCH (10:00)
[2016-06-13] VITALS (68 sets, daily range): BP systolic 121–174; BP diastolic 58–120
[2016-06-13] MEDS: HYDRALAZINE 20MG/ML VIAL IV SCH ×6 (00:06→20:23)
[2016-06-13] MEDS: INSULIN LISPRO 100 UNITS/ML SUBCUT SCH ×6 (00:11→20:29)
[2016-06-13] MEDS: BLOOD SUGAR DIAGNOSTIC STRIP TEST SCH ×6 (00:12→20:31)
[2016-06-13] MEDS: IPRATROPIUM BROMIDE (0.02%) 0.5MG/2.5ML NEB HHN SCH ×4 (01:27→20:13)
[2016-06-13] MEDS: TOTAL PARENTERAL NUTRITION 1,000 ML IV SCH ×2 (03:01→21:21)
[2016-06-13] MEDS: HYDROMORPHONE HCL/PF 2MG/ML CPJ IV PRN ×2 (04:36→20:48)
[2016-06-13 05:41] LABS: BASOPHILS % 0.1 % (0.0-2.0); HEMATOCRIT. 28.3 % (36.0-48.0); HEMOGLOBIN. 9.6 g/dL (12.0-16.0); LYMPHOCYTES % 7.4 % (20.0-50.0); MEAN CORPUSCULAR HEMOGLOBIN 28.4 pg (28.0-32.0); MEAN CORPUSCULAR HGB CONC 33.8 g/dL (31.0-37.0); NEUTROPHILS % 84.5 % (40.0-76.0); RED BLOOD CELL COUNT 3.37 mill/uL (4.2-5.4); RED CELL DISTRIBUTION WIDTH 17.9 % (11.6-14.6); WHITE BLOOD COUNT 9.6 x1000/uL (4.5-11.0)
[2016-06-13 06:00] LABS: DIFFERENTIAL COMMENT 1
[2016-06-13 06:15] LABS: CHLORIDE 117 mEq/L (98-107); INDEX HEMOLYSI 1 (1-3); INDEX ICTERIC 1 (1-4); INDEX LIPEMIC 1 (1-3); MAGNESIUM 1.9 mg/dL (1.8-2.4); UREA NITROGEN BLOOD 28 mg/dL (7-21); eGFR > 60 mL/min (>60)
[2016-06-13 06:17] LABS: CARBON DIOXIDE 25 mEq/L (21-32)
[2016-06-13] MEDS: NITROGLYCERIN OINT 1GM/INCH UDPKT TD SCH ×3 (06:44→22:33)
[2016-06-13 06:54] LABS: ANION GAP 12; CALCIUM 6.9 mg/dL (8.5-10.1); PHOSPHORUS 2.2 mg/dL (2.5-4.9)
[2016-06-13 07:20] LABS: MEAN PLATELET VOLUME 10.5 fl (7.4-10.4); PLATELET 24 x1000/uL (130-400)
[2016-06-13] MEDS: HYDROCORTISONE SOD SUCCINATE 100 MG/2 ML VIAL IV SCH ×2 (08:33→17:51)
[2016-06-13] MEDS: PANTOPRAZOLE SODIUM 40 MG/VIAL IV SCH (08:33)
[2016-06-13] MEDS: MEGESTROL ACETATE 400 MG/10 ML UDC PO SCH (08:33)
[2016-06-13] MEDS ORDERED: POTASSIUM PHOS,M-BASIC-D-BASIC 15 MMOL in DEXT 5% WATER 245 ML IV NR (09:30)
[2016-06-14] VITALS (21 sets, daily range): BP systolic 89–174; BP diastolic 33–104
[2016-06-14] MEDS: HYDRALAZINE 20MG/ML VIAL IV SCH ×6 (00:11→20:22)
[2016-06-14] MEDS: INSULIN LISPRO 100 UNITS/ML SUBCUT SCH ×6 (00:15→20:23)
[2016-06-14] MEDS: IPRATROPIUM BROMIDE (0.02%) 0.5MG/2.5ML NEB HHN SCH ×4 (01:59→21:09)
[2016-06-14] MEDS: BLOOD SUGAR DIAGNOSTIC STRIP TEST SCH ×6 (04:00→20:23)
[2016-06-14] MEDS: TOTAL PARENTERAL NUTRITION 1,000 ML IV SCH ×3 (05:00→17:25)
[2016-06-14] MEDS: HYDROCORTISONE SOD SUCCINATE 100 MG/2 ML VIAL IV SCH ×2 (05:13→18:23)
[2016-06-14 06:16] LABS: BASOPHILS % 0.2 % (0.0-2.0); EOSINOPHILS % 0.3 % (0.0-5.0); HEMOGLOBIN. 9.8 g/dL (12.0-16.0); LYMPHOCYTES % 12.5 % (20.0-50.0); MEAN CORPUSCULAR HEMOGLOBIN 27.6 pg (28.0-32.0); MEAN CORPUSCULAR HGB CONC 32.6 g/dL (31.0-37.0); MEAN CORPUSCULAR VOLUME 84.8 fL (81.0-99.0); MEAN PLATELET VOLUME 9.4 fl (7.4-10.4); MONOCYTES % 13.6 % (2.0-8.0); NEUTROPHILS % 73.4 % (40.0-76.0); PLATELET 99 x1000/uL (130-400); RED BLOOD CELL COUNT 3.54 mill/uL (4.2-5.4); WHITE BLOOD COUNT 11.8 x1000/uL (4.5-11.0)
[2016-06-14 07:09] LABS: ANION GAP 13; CALCIUM 7.2 mg/dL (8.5-10.1); CARBON DIOXIDE 24 mEq/L (21-32); CHLORIDE 116 mEq/L (98-107); INDEX HEMOLYSI 1 (1-3); INDEX ICTERIC 1 (1-4); INDEX LIPEMIC 1 (1-3); MAGNESIUM 1.9 mg/dL (1.8-2.4); PHOSPHORUS 2.6 mg/dL (2.5-4.9); UREA NITROGEN BLOOD 28 mg/dL (7-21); eGFR > 60 mL/min (>60)
[2016-06-14] MEDS: PANTOPRAZOLE SODIUM 40 MG/VIAL IV SCH (08:43)
[2016-06-14] MEDS: NITROGLYCERIN OINT 1GM/INCH UDPKT TD SCH ×2 (08:50→14:00)
[2016-06-14] MEDS: MEGESTROL ACETATE 400 MG/10 ML UDC PO SCH (08:50)
[2016-06-14] MEDS ORDERED: POTASSIUM PHOS,M-BASIC-D-BASIC 15 MMOL in DEXT 5% WATER 250 ML IV SCH (11:30)
[2016-06-15] VITALS (20 sets, daily range): BP systolic 141–195; BP diastolic 70–117
[2016-06-15] MEDS: NITROGLYCERIN OINT 1GM/INCH UDPKT TD SCH ×4 (01:21→21:14)
[2016-06-15] MEDS: HYDRALAZINE 20MG/ML VIAL IV SCH ×6 (01:21→20:01)
[2016-06-15] MEDS: INSULIN LISPRO 100 UNITS/ML SUBCUT SCH ×6 (01:22→20:02)
[2016-06-15] MEDS: IPRATROPIUM BROMIDE (0.02%) 0.5MG/2.5ML NEB HHN SCH ×4 (02:13→20:12)
[2016-06-15] MEDS: BLOOD SUGAR DIAGNOSTIC STRIP TEST SCH ×6 (04:23→20:02)
[2016-06-15] MEDS: HYDROCORTISONE SOD SUCCINATE 100 MG/2 ML VIAL IV SCH ×2 (05:15→17:19)
[2016-06-15 07:13] LABS: BASOPHILS % 0.1 % (0.0-2.0); EOSINOPHILS % 0.4 % (0.0-5.0); HEMATOCRIT. 29.7 % (36.0-48.0); LYMPHOCYTES % 10.1 % (20.0-50.0); MEAN CORPUSCULAR HEMOGLOBIN 28.4 pg (28.0-32.0); MEAN CORPUSCULAR HGB CONC 33.6 g/dL (31.0-37.0); MEAN CORPUSCULAR VOLUME 84.6 fL (81.0-99.0); MEAN PLATELET VOLUME 9.8 fl (7.4-10.4); MONOCYTES % 14.2 % (2.0-8.0); NEUTROPHILS % 75.2 % (40.0-76.0); PLATELET 99 x1000/uL (130-400); RED BLOOD CELL COUNT 3.51 mill/uL (4.2-5.4); RED CELL DISTRIBUTION WIDTH 17.3 % (11.6-14.6); WHITE BLOOD COUNT 10.7 x1000/uL (4.5-11.0)
[2016-06-15] MEDS: TOTAL PARENTERAL NUTRITION 1,000 ML IV SCH (07:45)
[2016-06-15 07:54] LABS: ANION GAP 10; CALCIUM 7.4 mg/dL (8.5-10.1); CARBON DIOXIDE 26 mEq/L (21-32); CHLORIDE 116 mEq/L (98-107); INDEX HEMOLYSI 1 (1-3); INDEX ICTERIC 1 (1-4); INDEX LIPEMIC 1 (1-3); PREALBUMIN 30.6 mg/dL (20.0-40.0); UREA NITROGEN BLOOD 25 mg/dL (7-21); eGFR > 60 mL/min (>60)
[2016-06-15] MEDS: MEGESTROL ACETATE 400 MG/10 ML UDC PO SCH (07:54)
[2016-06-15] MEDS: PANTOPRAZOLE SODIUM 40 MG/VIAL IV SCH (07:54)
[2016-06-15] MEDS: ENALAPRIL 1.25MG/ML VIAL 1ML IV PRN ×3 (11:08→22:26)
[2016-06-15] MEDS ORDERED: CLONIDINE HCL 0.3MG/24HR PATCH TD SCH (12:00)
[2016-06-15] MEDS: ACETAMINOPHEN 650MG/20.3ML UDC PO PRN (12:35)
[2016-06-16] VITALS (16 sets, daily range): BP systolic 103–194; BP diastolic 70–112
[2016-06-16] MEDS: TOTAL PARENTERAL NUTRITION 1,000 ML IV SCH ×2 (00:02→15:21)
[2016-06-16] MEDS: HYDRALAZINE 20MG/ML VIAL IV SCH ×6 (00:08→20:00)
[2016-06-16] MEDS: INSULIN LISPRO 100 UNITS/ML SUBCUT SCH ×6 (00:28→20:49)
[2016-06-16] MEDS: BLOOD SUGAR DIAGNOSTIC STRIP TEST SCH ×6 (00:29→20:37)
[2016-06-16] MEDS: IPRATROPIUM BROMIDE (0.02%) 0.5MG/2.5ML NEB HHN SCH ×4 (01:08→20:55)
[2016-06-16] MEDS: HYDROCORTISONE SOD SUCCINATE 100 MG/2 ML VIAL IV SCH ×2 (05:15→17:50)
[2016-06-16] MEDS: NITROGLYCERIN OINT 1GM/INCH UDPKT TD SCH ×3 (05:16→23:01)
[2016-06-16 06:22] LABS: BASOPHILS % 0.3 % (0.0-2.0); EOSINOPHILS % 0.1 % (0.0-5.0); HEMATOCRIT. 29.9 % (36.0-48.0); HEMOGLOBIN. 9.8 g/dL (12.0-16.0); LYMPHOCYTES % 7.8 % (20.0-50.0); MEAN CORPUSCULAR HEMOGLOBIN 28.2 pg (28.0-32.0); MEAN CORPUSCULAR HGB CONC 32.9 g/dL (31.0-37.0); MEAN CORPUSCULAR VOLUME 85.8 fL (81.0-99.0); NEUTROPHILS % 80.8 % (40.0-76.0); PLATELET 100 x1000/uL (130-400); RED BLOOD CELL COUNT 3.48 mill/uL (4.2-5.4); RED CELL DISTRIBUTION WIDTH 17.6 % (11.6-14.6); WHITE BLOOD COUNT 12.1 x1000/uL (4.5-11.0)
[2016-06-16 06:32] LABS: DIFFERENTIAL COMMENT 1
[2016-06-16 06:33] LABS: ADD RBC MORPHOLOGY YES
[2016-06-16] MEDS: ACETAMINOPHEN 650MG/20.3ML UDC PO PRN ×2 (06:37→21:03)
[2016-06-16 07:11] LABS: CHLORIDE 114 mEq/L (98-107); INDEX HEMOLYSI 1 (1-3); INDEX ICTERIC 1 (1-4); INDEX LIPEMIC 1 (1-3)
[2016-06-16 07:21] LABS: ALANINE AMINOTRANSFERASE 39 IU/L (13-61); ALBUMIN 1.9 g/dL (3.4-5.0); ANION GAP 13; BILIRUBIN DIRECT 0.1 mg/dL (0.0-0.2); CALCIUM 7.9 mg/dL (8.5-10.1); CARBON DIOXIDE 24 mEq/L (21-32); MAGNESIUM 1.8 mg/dL (1.8-2.4); PHOSPHORUS 2.6 mg/dL (2.5-4.9); UREA NITROGEN BLOOD 25 mg/dL (7-21); eGFR > 60 mL/min (>60)
[2016-06-16 07:45] LABS: PLATELET ESTIMATE SLIGHTLY DECREASED
[2016-06-16 07:46] LABS: ANISOCYTOSIS 2+
[2016-06-16] MEDS ORDERED: POTASSIUM CHLORIDE 20MEQ TABLET SR PO SCH (08:00)
[2016-06-16] MEDS: MEGESTROL ACETATE 400 MG/10 ML UDC PO SCH (09:04)
[2016-06-16] MEDS: PANTOPRAZOLE SODIUM 40 MG/VIAL IV SCH (09:05)
[2016-06-16] MEDS: ENALAPRIL 1.25MG/ML VIAL 1ML IV PRN (16:15)
[2016-06-16] MEDS: FAT EMULSIONS 500 ML IV SCH (20:48)
[2016-06-17] VITALS (12 sets, daily range): BP systolic 133–169; BP diastolic 73–96
[2016-06-17] MEDS: BLOOD SUGAR DIAGNOSTIC STRIP TEST SCH ×6 (00:13→20:59)
[2016-06-17] MEDS: HYDRALAZINE 20MG/ML VIAL IV SCH ×6 (00:39→20:59)
[2016-06-17] MEDS: INSULIN LISPRO 100 UNITS/ML SUBCUT SCH ×6 (00:40→20:00)
[2016-06-17] MEDS: IPRATROPIUM BROMIDE (0.02%) 0.5MG/2.5ML NEB HHN SCH ×4 (02:56→20:44)
[2016-06-17] MEDS: NITROGLYCERIN OINT 1GM/INCH UDPKT TD SCH ×2 (05:33→14:44)
[2016-06-17 06:47] LABS: ANION GAP 12; CARBON DIOXIDE 26 mEq/L (21-32); CHLORIDE 112 mEq/L (98-107); INDEX HEMOLYSI 4 (1-3); INDEX ICTERIC 1 (1-4); MAGNESIUM 1.6 mg/dL (1.8-2.4); PHOSPHORUS 2.3 mg/dL (2.5-4.9); eGFR > 60 mL/min (>60)
[2016-06-17 07:21] LABS: UREA NITROGEN BLOOD 19 mg/dL (7-21)
[2016-06-17 07:42] LABS: INDEX LIPEMIC 2 (1-3)
[2016-06-17 08:01] LABS: CALCIUM 7.8 mg/dL (8.5-10.1)
[2016-06-17] MEDS: PANTOPRAZOLE SODIUM 40 MG/VIAL IV SCH (08:52)
[2016-06-17] MEDS: MEGESTROL ACETATE 400 MG/10 ML UDC PO SCH (08:52)
[2016-06-17] MEDS: TOTAL PARENTERAL NUTRITION 1,000 ML IV SCH (08:56)
[2016-06-17 09:09] LABS: HEMATOCRIT. 27.8 % (36.0-48.0); MEAN CORPUSCULAR VOLUME 85.5 fL (81.0-99.0); MEAN PLATELET VOLUME 10.9 fl (7.4-10.4); PLATELET 115 x1000/uL (130-400); RED BLOOD CELL COUNT 3.25 mill/uL (4.2-5.4); RED CELL DISTRIBUTION WIDTH 17.6 % (11.6-14.6); WHITE BLOOD COUNT 9.3 x1000/uL (4.5-11.0)
[2016-06-17 09:10] LABS: DIFFERENTIAL COMMENT 1; MEAN CORPUSCULAR HGB CONC 33.1 g/dL (31.0-37.0)
[2016-06-17 09:11] LABS: HEMOGLOBIN. 9.2 g/dL (12.0-16.0)
[2016-06-17 09:12] LABS: MEAN CORPUSCULAR HEMOGLOBIN 28.3 pg (28.0-32.0)
[2016-06-17] MEDS ORDERED: MAGNESIUM 2 G PREMIX 50 ML IV NR (09:30)
[2016-06-17] MEDS ORDERED: ALBUMIN HUMAN 25GM/100ML (25%) IV SCH (10:00)
[2016-06-17] MEDS ORDERED: POTASSIUM PHOS,M-BASIC-D-BASIC 15 MMOL in DEXT 5% WATER 245 ML IV NR (10:30)
[2016-06-17 10:46] LABS: ALBUMIN 1.9 g/dL (3.4-5.0)
[2016-06-17 10:53] LABS: ANISOCYTOSIS 1+; PLATELET ESTIMATE SLIGHTLY DECREASED
[2016-06-17] MEDS ORDERED: FUROSEMIDE 40MG/4ML VIAL IVP SCH (12:00)
[2016-06-17] MEDS: ACETAMINOPHEN 650MG/20.3ML UDC PO PRN (19:11)
== END 2016-06-17 21:20 | DRG 853 ==
LOC: ER 15:45 → CVICU 23:46 → 3WST 05-25 18:40 → MICUSO 05-28 17:49 → 5EST 06-01 22:27 → CVICU 06-03 21:00 → 3WST 06-14 02:44
PROVIDERS: ADMIT Internal Medicine Endocrinology, Diabetes & Metabolism; ATTEND Internal Medicine Endocrinology, Diabetes & Metabolism
PROC: 5A1955Z Respiratory Ventilation, Greater than 96 Consecutive Hours (ICD-10-PCS; 2016-05-21)
PROC: 0BH17EZ Insertion of Endotracheal Airway into Trachea, Via Natural or Artificial Opening (ICD-10-PCS; 2016-05-21)
PROC: 0DN80ZZ Release Small Intestine, Open Approach (ICD-10-PCS; principal; 2016-05-28 11:00)
PROC: 30233N1 Transfusion of Nonautologous Red Blood Cells into Peripheral Vein, Percutaneous Approach (ICD-10-PCS; 2016-05-29)
PROC: 4A00X4Z Measurement of Central Nervous Electrical Activity, External Approach (ICD-10-PCS; 2016-05-29)
PROC: 0WJP0ZZ Inspection of Gastrointestinal Tract, Open Approach (ICD-10-PCS; 2016-06-05)
PROC: 0BH17EZ Insertion of Endotracheal Airway into Trachea, Via Natural or Artificial Opening (ICD-10-PCS; 2016-06-06)
PROC: 02HV33Z Insertion of Infusion Device into Superior Vena Cava, Percutaneous Approach (ICD-10-PCS; 2016-06-10)
PROC: B548ZZA Ultrasonography of Superior Vena Cava, Guidance (ICD-10-PCS; 2016-06-10)
PROC: 30233R1 Transfusion of Nonautologous Platelets into Peripheral Vein, Percutaneous Approach (ICD-10-PCS; 2016-06-13)
DX: A41.9 Sepsis, unspecified organism (principal); G93.40 Encephalopathy, unspecified; N17.0 Acute kidney failure with tubular necrosis; K65.9 Peritonitis, unspecified; E43 Unspecified severe protein-calorie malnutrition; J96.01 Acute respiratory failure with hypoxia; K72.00 Acute and subacute hepatic failure without coma; E27.2 Addisonian crisis; E27.1 Primary adrenocortical insufficiency; E87.0 Hyperosmolality and hypernatremia; E87.2 Acidosis; I82.622 Acute embolism and thrombosis of deep veins of left upper extremity; J44.0 Chronic obstructive pulmonary disease with (acute) lower respiratory infection; J44.1 Chronic obstructive pulmonary disease with (acute) exacerbation; K56.5 Intestinal adhesions [bands] with obstruction (postinfection); K56.7 Ileus, unspecified; M62.82 Rhabdomyolysis; R57.9 Shock, unspecified; M87.9 Osteonecrosis, unspecified; E87.1 Hypo-osmolality and hyponatremia; T82.868A Thrombosis due to vascular prosthetic devices, implants and grafts, initial encounter; F41.9 Anxiety disorder, unspecified; D64.9 Anemia, unspecified; D69.59 Other secondary thrombocytopenia; E11.22 Type 2 diabetes mellitus with diabetic chronic kidney disease; E11.65 Type 2 diabetes mellitus with hyperglycemia; E78.00 Pure hypercholesterolemia, unspecified; E78.1 Pure hyperglyceridemia; E83.39 Other disorders of phosphorus metabolism; E83.42 Hypomagnesemia; E83.51 Hypocalcemia; E86.0 Dehydration; E87.6 Hypokalemia; F12.90 Cannabis use, unspecified, uncomplicated; I13.10 Hypertensive heart and chronic kidney disease without heart failure, with stage 1 through stage 4 chronic kidney disease, or unspecified chronic kidney disease; E11.51 Type 2 diabetes mellitus with diabetic peripheral angiopathy without gangrene; J20.9 Acute bronchitis, unspecified; R74.0 Nonspecific elevation of levels of transaminase and lactic acid dehydrogenase [LDH]; W18.30XA Fall on same level, unspecified, initial encounter; K52.9 Noninfective gastroenteritis and colitis, unspecified; M19.90 Unspecified osteoarthritis, unspecified site; F11.90 Opioid use, unspecified, uncomplicated; J02.9 Acute pharyngitis, unspecified; M48.06 Spinal stenosis, lumbar region; F32.9 Major depressive disorder, single episode, unspecified; G89.29 Other chronic pain; N18.9 Chronic kidney disease, unspecified; C50.911 Malignant neoplasm of unspecified site of right female breast; Z86.2 Personal history of diseases of the blood and blood-forming organs and certain disorders involving the immune mechanism; Z90.49 Acquired absence of other specified parts of digestive tract; Z79.899 Other long term (current) drug therapy; Z88.0 Allergy status to penicillin; Z91.19 Patient's noncompliance with other medical treatment and regimen; Z92.21 Personal history of antineoplastic chemotherapy; Z92.3 Personal history of irradiation; Z90.10 Acquired absence of unspecified breast and nipple; Z90.710 Acquired absence of both cervix and uterus; Y93.89 Activity, other specified; Y92.89 Other specified places as the place of occurrence of the external cause; Y99.8 Other external cause status; Z87.891 Personal history of nicotine dependence; Z68.23 Body mass index [BMI] 23.0-23.9, adult
CPT/HCPCS: 31500; 36415; 36556; 36569; 36600; 70450; 71010; 71020; 74000; 74010; 74176; 74249; 76700; 77001; 80048; 80053; 80076; 80202; 81001; 82024; 82040; 82088; 82270; 82375; 82533; 82550; 82553; 82575; 82805; 82962; 82977; 83036; 83605; 83690; 83735; 83880; 84100; 84132; 84134; 84439; 84443; 84478; 84481; 84484; 85007; 85014; 85018; 85025; 85027; 85379; 85384; 85610; 85730; 86705; 86709; 86803; 86850; 86900; 86920; 86945; 87040; 87070; 87086; 87340; 87493; 92610; 93005; 93306; 93923; 93970; 93971; 94002; 94003; 94640; 96361; 96365; 96368; 96375; 97110; 97116; 97163; 97164; 97166; 97168; 97530; 97535; 99291; A6261; C1725; C9113; J0171; J0330; J0360; J1170; J1200; J1720; J1815; J1885; J1940; J1956; J2060; J2185; J2250; J2270; J2370; J2405; J2704; J2710; J2920; J3010; J3370; J3475; J3480; J3490; J7030; J7040; J7042; J7050; J7060; J7070; J7620; J7626; P9016; P9034; P9041; P9047; Q9963; A4315

== ENCOUNTER → 2016-08-09 | Outpatient (CLI) | payer MEDICARE, MEDICAID ==
[~2016-08-09] MED LIST changes: -ETOMIDATE 2MG/ML 10ML VIAL IV ONE; -SUCCINYLCHOLINE CHLORIDE 200MG/10ML VIAL IV ONE
== END | disposition home or self-care (01) ==
LOC: MAMMO 07:42
PROVIDERS: ATTEND Internal Medicine Endocrinology, Diabetes & Metabolism
DX: R92.8 Other abnormal and inconclusive findings on diagnostic imaging of breast (principal); R60.0 Localized edema; M79.605 Pain in left leg; M79.604 Pain in right leg; Z85.3 Personal history of malignant neoplasm of breast
CPT/HCPCS: 93970; G0204

== ENCOUNTER → 2017-09-30 | Outpatient (CLI) | payer MEDICARE, MEDICAID | END | disposition home or self-care (01) | LOC: MAMMO 10:25 | PROVIDERS: ATTEND Internal Medicine Endocrinology, Diabetes & Metabolism | DX: Z12.31 Encounter for screening mammogram for malignant neoplasm of breast (principal) | CPT/HCPCS: 77067 ==

== ENCOUNTER → 2018-11-16 | Outpatient (CLI) | payer MEDICARE, MEDICAID ==
[~2018-11-16] MED LIST changes: -OMEP20CA10; +OMEP20CA5
== END | disposition home or self-care (01) ==
LOC: MAMMO 08:03
PROVIDERS: ATTEND Internal Medicine Endocrinology, Diabetes & Metabolism
DX: Z12.31 Encounter for screening mammogram for malignant neoplasm of breast (principal)
CPT/HCPCS: 77067